=== PATIENT | male | born 1950 | race Caucasian/White ===

== ENCOUNTER → 2016-08-20 | Outpatient (CLI) | payer MEDICARE, OTHER | LOC: GMAM 10:50 | PROVIDERS: ATTEND Family Medicine | DX: M10.9 Gout, unspecified (principal) ==

== ENCOUNTER → 2016-11-25 | Outpatient (CLI) | payer MEDICARE, OTHER | END | disposition home or self-care (01) | LOC: GMAM 11:56 | PROVIDERS: ATTEND Family Medicine | DX: M10.9 Gout, unspecified (principal) ==

== ENCOUNTER → 2017-02-25 | Outpatient (CLI) | payer MEDICARE, OTHER | LOC: GMAM 10:37 | PROVIDERS: ATTEND Family Medicine | DX: M06.9 Rheumatoid arthritis, unspecified (principal); M10.9 Gout, unspecified; I10 Essential (primary) hypertension ==

== ENCOUNTER 2017-06-01 03:30 | Observation (INO) | payer MEDICARE, OTHER ==
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
[2017-06-01] MEDS ORDERED: ACETAMINOPHEN 325 MG TAB PO PRN (17:25)
[2017-06-01] MEDS ORDERED: NITROGLYCERIN 0.4 MG 25 EA TAB SL PRN (17:25)
[2017-06-01] MEDS ORDERED: MORPHINE SULFATE INJ 10 MG/ML VIAL IV PRN (17:25)
[2017-06-01] MEDS ORDERED: SODIUM CHLORIDE 0.9% (FLUSH) 10 ML SYG IV PRN (17:25)
[2017-06-01] MEDS ORDERED: IV SET AND CAP CHANGE INJ INJ SCH (17:30)
[2017-06-01] MEDS ORDERED: traMADol HCL 50 MG TAB PO PRN (17:31)
--- NOTE | 2017-06-01 17:39 | PCM.CORE ---
Physician DVT/VTE - 2 Moderate Risk Treatments: Sequential Compression Device Pharmacological: Enoxaparin 40mg SQ Daily
--- NOTE | 2017-06-01 18:24 | RAD ---
EXAM DESCRIPTION: Chest,1 View CLINICAL HISTORY: 66 years Male SOB COMPARISON: None. FINDINGS: The cardiomediastinal silhouette appears unremarkable. No consolidating infiltrates. No pneumothorax. Mild elevation of the left hemidiaphragm with left basilar atelectasis. Some blunting of the left costophrenic angle could reflect a small effusion. IMPRESSION: Elevation left hemidiaphragm with left basilar atelectasis. Some blunting of the left costophrenic angle could reflect a small amount of fluid. Electronically signed by: Shannon Petit 06/01/2017 6:23 PM CDT
[2017-06-01] MEDS ORDERED: ASPIRIN (CHEWABLE) 81 MG TAB ONE (18:33)
[2017-06-01] MEDS: PANTOPRAZOLE SODIUM TAB 40 MG PO SCH (18:38)
[2017-06-01] MEDS: ASPIRIN TABLET 325 MG TAB PO SCH (18:40)
[2017-06-01] MEDS ORDERED: DEXTROSE 50% 25 GM/50 ML SYG IV PRN (20:17)
[2017-06-01] MEDS ORDERED: GLUCAGON INJ 1 MG VIAL SUBCU PRN (20:17)
[2017-06-01] MEDS ORDERED: VERAPAMIL HCL 180 MG PO SCH (21:00)
[2017-06-01] MEDS ORDERED: METOPROLOL SUCCINATE XL 50 MG TAB PO SCH (21:00)
[2017-06-01] MEDS ORDERED: metFORMIN HCL 500 MG TAB PO SCH (21:00)
[2017-06-01] MEDS ORDERED: predniSONE 10 MG TAB PO SCH (21:00)
[2017-06-01] MEDS: ALBUTEROL SULFATE 2.5 MG/3 ML VIAL NEB SCH (21:35)
[2017-06-01] MEDS: NYSTATIN SUSPENSION 5 ML UD MT SCH (21:46)
[2017-06-01] MEDS: SUCRALFATE 1 GM/10 ML 1 GM UD PO SCH (21:46)
[2017-06-01] MEDS: SODIUM CHLORIDE 0.9% (FLUSH) 10 ML SYG IV SCH (21:46)
[2017-06-01] MEDS: INSULIN LISPRO 100 UNITS/ML PEN SUBCU SCH (21:46)
[2017-06-01] MEDS: HYDROcodone 7.5MG/APAP 325MG 1 EA TAB PO PRN (21:49)
[2017-06-02] MEDS: SUCRALFATE 1 GM/10 ML 1 GM UD PO SCH ×3 (06:47→14:41)
[2017-06-02] MEDS: PANTOPRAZOLE SODIUM TAB 40 MG PO SCH (06:47)
[2017-06-02] MEDS ORDERED: metFORMIN HCL 500 MG TAB PO SCH (07:00)
[2017-06-02] MEDS ORDERED: TRANDOLAPRIL 2 MG PO SCH (07:00)
--- NOTE | 2017-06-02 07:02 | RAD ---
EXAM DESCRIPTION: Chest,1 View CLINICAL HISTORY: 66 years Male, hiccups. Left diaphragm paralysis? COMPARISON: 06/01/2017 FINDINGS: Atherosclerotic calcification of the aortic arch. Heart is not enlarged. No pneumothorax. Blunting of the left costophrenic angle likely related to left basilar atelectasis however a small left pleural effusion is also a possibility. No displaced rib fractures. Upper abdominal soft tissues unremarkable. Leads overlie the chest. Elevation left hemidiaphragm. IMPRESSION: 1. Persistent left basilar opacity likely related to atelectasis. Possible small left pleural effusion. Electronically signed by: Farrukh Farrell 06/02/2017 7:01 AM CDT
[2017-06-02] MEDS: ALBUTEROL SULFATE 2.5 MG/3 ML VIAL NEB SCH ×2 (07:57→13:25)
[2017-06-02] MEDS ORDERED: predniSONE 10 MG TAB PO SCH ×2 (08:00→21:00)
[2017-06-02] MEDS: INSULIN LISPRO 100 UNITS/ML PEN SUBCU SCH ×2 (08:52→12:23)
[2017-06-02] MEDS ORDERED: VERAPAMIL ER 120 MG TAB PO SCH (09:00)
[2017-06-02] MEDS ORDERED: METOPROLOL SUCCINATE XL 50 MG TAB PO SCH (09:00)
[2017-06-02] MEDS ORDERED: INDOMETHACIN CAP 25 MG CAP PO SCH (09:00)
[2017-06-02] MEDS ORDERED: NON-FORMULARY MEDICATION 1 EA MIS (Sitagliptin-Metformin Hcl [Janumet 50-1000 Mg] 1 TAB) PO SCH (09:00)
[2017-06-02] MEDS: NYSTATIN SUSPENSION 5 ML UD MT SCH ×2 (10:15→12:23)
[2017-06-02] MEDS: ASPIRIN TABLET 325 MG TAB PO SCH (10:15)
[2017-06-02] MEDS: HYDROcodone 7.5MG/APAP 325MG 1 EA TAB PO PRN (10:15)
[2017-06-02] MEDS: SODIUM CHLORIDE 0.9% (FLUSH) 10 ML SYG IV SCH (10:15)
[2017-06-02 11:14] VITALS: TEMP 98.1
--- NOTE | 2017-06-02 12:54 | RAD ---
EXAM DESCRIPTION: Chest,1 View CLINICAL HISTORY: left diaphragm paralysis? COMPARISON: June 02, 2017 at 0650 hours. IMPRESSION: Single AP portable upright expiratory view of the chest shows mild enlargement of the cardiac silhouette without pulmonary vascular congestion. Mild calcifications of the thoracic aortic arch are seen. There remains a small left pleural effusion and probable left basilar atelectasis or infiltrate similar to previous exam. No elevation of the hemidiaphragm is seen on this view. The diaphragms appear relatively symmetric. Electronically signed by: Gilbert Torrez MD 06/02/2017 12:53 PM CDT
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
[2017-06-02 16:00] VITALS: BP 136/77; O2SAT 96
== END 2017-06-02 13:35 | disposition home or self-care (01) ==
LOC: MS 03:30 → UNDOADMOB 03:30 → MS 16:50 → UNDOADMOB 16:50 → MS 17:00 → UNDODISOB 06-02 13:35
PROVIDERS: ADMIT Emergency Medicine; ATTEND Emergency Medicine
DX: J38.5 Laryngeal spasm (principal); E11.9 Type 2 diabetes mellitus without complications; R91.8 Other nonspecific abnormal finding of lung field; J44.9 Chronic obstructive pulmonary disease, unspecified; M19.90 Unspecified osteoarthritis, unspecified site; E78.5 Hyperlipidemia, unspecified; M1A.9XX0 Chronic gout, unspecified, without tophus (tophi); I10 Essential (primary) hypertension; Z86.73 Personal history of transient ischemic attack (TIA), and cerebral infarction without residual deficits; Z87.891 Personal history of nicotine dependence
CPT/HCPCS: 36415 ×5; 36416 ×3; 71010 ×3; 80048 ×2; 80061; 82550 ×3; 82553 ×3; 82948 ×3; 83036; 83880; 84484 ×3; 85025 ×2; 86140; 94640 ×2; 94760; 96372 ×2; G0378; J1815; J7611 ×3

== ENCOUNTER → 2017-06-07 | Outpatient (CLI) | payer MEDICARE, OTHER | END | disposition home or self-care (01) | LOC: GMAM 10:23 | PROVIDERS: ATTEND Family Medicine | DX: M10.9 Gout, unspecified (principal) ==

== ENCOUNTER 2017-06-28 10:05 | Inpatient (IN) | payer MEDICARE, OTHER ==
[2017-06-28] MEDS ORDERED: IPRATROPIUM/ALBUTEROL 3 ML VIAL NEB ONE (10:14)
[2017-06-28] MEDS ORDERED: ACETAMINOPHEN 325 MG TAB PO ONE (10:14)
--- NOTE | 2017-06-28 11:37 | RAD ---
EXAM DESCRIPTION: Chest,2 Views CLINICAL HISTORY: 66 years Male, sob, fever COMPARISON: 02 June 2017 TECHNIQUE: PA/lateral FINDINGS: By basilar atelectasis or parenchymal scarring is observed. There is persistent elevation of the left hemidiaphragm. The heart is within range of normal. No pleural fluid is seen. IMPRESSION: 1. Chronic basilar atelectasis or parenchymal scarring is observed bilaterally. 2. Persistent elevation of the left hemidiaphragm is noted. Electronically signed by: Wiliam Orellana MD 06/28/2017 11:[address] [facility]
[2017-06-28] MEDS ORDERED: AZITHROMYCIN IV 500 MG in SODIUM CHLORIDE 0.9% 250ML 250 ML IVPB ONE (11:59)
[2017-06-28] MEDS ORDERED: CEFEPIME 2 GM in SODIUM CHL 0.9% 50ML MIN-BAG+ 50 ML IVPB ONE (11:59)
[2017-06-28] MEDS ORDERED: CEFEPIME 2 GM VIAL IVPB ONE ×2 (12:12→19:46)
[2017-06-28] MEDS ORDERED: SODIUM CHL 0.9% 50ML MIN-BAG+ 50 ML IVPB ONE ×2 (12:12→19:48)
[2017-06-28] MEDS ORDERED: predniSONE 20 MG TAB PO ONE (12:22)
--- NOTE | 2017-06-28 12:32 | ED.PDOC ---
History of Present Illness - General Chief Complaint: Respiratory Problem Stated Complaint: Increased work of breathing, bodyaches Time Seen by Provider: 06/28/17 10:13 Source: patient Exam Limitations: no limitations - History of Present Illness Initial Comments: the patient is 66-year-old male with a significant past medical history that presented to his primary care doctor today secondary to approximately 5 days of feeling ill. He has had a fever. He has had a significant cough and shortness of breath with any activity. He does have a history of COPD and no longer smokes. He was hospitalized not too long ago for different reasons. He does apparently have a history of some frequent respiratory tract infections. No syncope. Sputum has been productive. Rapid flu and rapid strep were negative at his primary care doctor's office today. Timing/Duration: unsure Severity: moderate Improving Factors: nothing Worsening Factors: nothing Associated Symptoms: cough, fever/chills, malaise, shortness of breath Allergies/Adverse Reactions: Allergies NO KNOWN ALLERGY Allergy (Verified 06/28/17 10:36) Home Medications: Ambulatory Orders Albuterol Sulfate [Proair Hfa] 2 puff INH Q6H PRN 04/29/15 Aspirin [Baby Aspirin] 81 mg PO QD 04/29/15 Febuxostat [Uloric] 80 mg PO DAILY 04/29/15 Metoprolol Succinate [Metoprolol Succinate ER] 50 mg PO DAILY 04/29/15 [place]-3 Fatty Acids [Fish Oil 1000 mg] 1 cap PO BID 04/29/15 Simvastatin 40 mg PO BEDTIME 04/29/15 Tramadol HCl 50 - 100 mg PO Q6-8H PRN 04/29/15 Trandolapril 2 mg PO DAILY 04/29/15 Verapamil HCl [Verapamil HCl Sr] 180 mg PO DAILY 04/29/15 predniSONE 5 mg PO DAILY 04/29/15 Budesonide-Formoterol Fumarate [Symbicort 160-4.5 Mcg/Act] 1 each IN BID HYDROcodone 10MG/APAP 325MG [[place] ] 1 - 2 ea PO Q4H PRN 06/01/17 Sitagliptin-Metformin HCl [Janumet 50-1000 mg] 1 tab PO BID 06/01/17 Sucralfate Tab [Carafate Tab] 1 gm PO TID #100 tab 06/02/17 Calcium Citrate-Vitamin D [Calcium Citrate + D3 Maxi 315-250 mg-Unit] 1 tab PO BID 06/28/17 Dulaglutide [Trulicity] 0.75 mg SC WKLY 06/28/17 Furosemide [Lasix] 20 mg PO DAILY PRN 06/28/17 Potassium Chloride [Micro-K] 8 meq PO DAILY PRN 06/28/17 Umeclidinium [place] [Incruse Ellipta] 62.5 mcg IN DAILY 06/28/17 Review of Systems - Review of Systems Constitutional: States: chills, fever, malaise, weakness EENTM: States: throat pain Respiratory: States: cough, short of breath Cardiology: States: no symptoms reported Gastrointestinal/Abdominal: States: abdominal pain - eft upper quadrant mild Genitourinary: States: no symptoms reported Musculoskeletal: States: no symptoms reported Skin: States: no symptoms reported Neurological: States: no symptoms reported All other Systems: No Change from Baseline Past Medical History (General) - Patient Medical History Hx Congestive Heart Failure: No Hx Hypertension: Yes Hx Diabetes: Yes Hx MRSA: No - Vaccination History Hx Influenza Vaccination: Yes - 2016 Hx Pneumococcal Vaccination: Yes - unknown date - Social History Hx Tobacco Use: Yes Hx Alcohol Use: No Hx Substance Use: No Hx Physical Abuse: No Hx Emotional Abuse: No Family Medical History - Family History Mother Name: Karlie Urban Living Status: Age at (years of age): 78 Cause of : Old Age Hx Family Asthma: No Hx Family Congestive Heart Failure: No Hx Family Hypertension: Yes Age of Onset (years of age): unk Hx Family Stroke: No Hx Cardiac Disease: No Hx Family Diabetes: No Hx Family Cancer: No Hx Family;Other: Mother had long Hx of ETOH abuse and nictione use for 50 years. Father Name: Aly Urban Living Status: Age at (years of age): 82 Cause of : Cancer of Liver with met. Hx Family Asthma: No Hx Family Congestive Heart Failure: No Hx Family Hypertension: No Hx Family Stroke: No Hx Cardiac Disease: No Hx Family Diabetes: No Hx Family Cancer: Yes Age of Onset (years of age): unk Hx Family;Other: Father has long Hx of ETOH and Nictione Use for 30 years. At age 50 -- quit smoking and drinking. Physical Exam - Physical Exam General Appearance: Alert, Ill Appearing Eye Exam: bilateral normal Ears, Nose, Throat: nasal congestion, other - earing is mildly decreased bilaterally Neck: full range of motion, supple Respiratory: respiratory distress - mild increased work of breathing, crackles - primarily to the left lower lobe Cardiovascular/Chest: normal peripheral pulses, no edema, tachycardia Peripheral Pulses: radial,right: 2+, radial,left: 2+, dorsalis pedis,right: 2+, dorsalis pedis,left: 2+ Gastrointestinal/Abdominal: soft, other - ild discomfort to the left upper quadrant. No definite rebound or peritoneal signs. Rectal Exam: deferred Back Exam: normal inspection, no CVA tenderness, no vertebral tenderness Extremity: non-tender, normal inspection, no pedal edema, normal capillary refill Neurologic: dyslexia teacher II-XII nml as tested, alert, normal mood/affect, oriented x 3 Skin Exam: pallor - mild Comments: Vital Signs - 24 hr 06/28/17 06/28/17 06/28/17 10:11 10:51 11:14 Temperature 99.7 F H Pulse Rate 107 H 113 H Pulse Rate [ 110 H Left Radial] Respiratory 24 20 20 Rate Blood Pressure 119/47 [Left Arm] O2 Sat by Pulse 84 L 95 96 Oximetry 06/28/17 11:17 Temperature Pulse Rate 113 H Pulse Rate [ 112 H Left Radial] Respiratory 20 Rate Blood Pressure 128/64 [Left Arm] O2 Sat by Pulse 94 L Oximetry Progress - Progress Progress: 06/28/17 12:34 the patient is a 66-year-old male presenting to the emergency room secondary to fever along with some shortness of breath and cough for the better part of the last week. The patient appears to be having a significant COPD exacerbation with significant hypoxia and fevers. Chest x-ray does not show any large pneumonia but the patient's lungs are obviously not clear. He does require supplemental oxygen. White blood cell count is not elevated however the patient is likely somewhat immunocompromised secondary to chronic steroid usage for autoimmune purposes. The patient is being started on cefepime and azithromycin. Blood cultures have been obtained. A sputum culture is pending. A urinalysis still needs to be performed. He received 20 mg of prednisone for the COPD component but also for the possibility of adrenal insufficiency with this patient with long-term steroid usage. The patient does have some mild left upper quadrant discomfort palpation. If that persists or worsens then additional imaging or testing may be warranted for that area. Anticipate a 3-5 day hospital stay given his current state and comorbidities. - Results/Orders Results/Orders: Laboratory Tests 06/28/17 06/28/17 10:24 10:24 WBC 7.6 RBC 3.85 L Hgb 12.0 L Hct 35.4 L MCV 91.9 MCH 31.1 H MCHC 34.0 RDW 14.5 Plt Count 246 MPV 7.5 Absolute Neuts (auto) 6.00 Absolute Lymphs (auto) 1.20 Absolute Monos (auto) 0.30 Absolute Eos (auto) 0.00 Absolute Basos (auto) 0.10 Neutrophils % 78.9 H Lymphocytes % 15.7 L Monocytes % 4.3 Eosinophils % 0.4 L Basophils % 0.7 Sodium 137 Potassium 4.0 Chloride 103 Carbon Dioxide 20 L Anion Gap 18.0 BUN 24 H Creatinine 1.37 H BUN/Creatinine Ratio 17.5 Random Glucose 168 H Serum Osmolality 281.7 Calcium 9.3 Total Bilirubin 0.6 AST 20 ALT 26 Alkaline Phosphatase 64 Creatine Kinase 26 L CK-MB (CK-2) 1.7 CK-MB (CK-2) % Not Reportable Troponin I < 0.02 B-Natriuretic Peptide 57.4 Serum Total Protein 7.8 Albumin 3.4 Globulin 4.4 H Albumin/Globulin Ratio 0.8 L chest x-ray shows persistent elevation of the left hemidiaphragm. No obvious large lobar pneumonia. No evidence of fluid overload. No pneumothorax. EKG shows sinus tachycardia at a rate of [address] bpm[address] Mild [address] segment depressions in lateral leads which is probably chronic. Normal R-wave progression. Very mild right axis deviation. No definitive ST segment changes concerning for ischemia. There is no chest pain. Departure - Departure Clinical Impression: COPD with acute exacerbation Disposition: Admit Patient Referrals: Ben Nguyễn MD [Primary Care Provider] - 1-2 Weeks Home Medications: Ambulatory Orders Albuterol Sulfate [Proair Hfa] 2 puff INH Q6H PRN 04/29/15 Aspirin [Baby Aspirin] 81 mg PO QD 04/29/15 Febuxostat [Uloric] 80 mg PO DAILY 04/29/15 Metoprolol Succinate [Metoprolol Succinate ER] 50 mg PO DAILY 04/29/15 [place]-3 Fatty Acids [Fish Oil 1000 mg] 1 cap PO BID 04/29/15 Simvastatin 40 mg PO BEDTIME 04/29/15 Tramadol HCl 50 - 100 mg PO Q6-8H PRN 04/29/15 Trandolapril 2 mg PO DAILY 04/29/15 Verapamil HCl [Verapamil HCl Sr] 180 mg PO DAILY 04/29/15 predniSONE 5 mg PO DAILY 04/29/15 Budesonide-Formoterol Fumarate [Symbicort 160-4.5 Mcg/Act] 1 each IN BID HYDROcodone 10MG/APAP 325MG [[place] 10] 1 - 2 ea PO Q4H PRN 06/01/17 Sitagliptin-Metformin HCl [Janumet 50-1000 mg] 1 tab PO BID 06/01/17 Sucralfate Tab [Carafate Tab] 1 gm PO TID #100 tab 06/02/17 Calcium Citrate-Vitamin D [Calcium Citrate + D3 Maxi 315-250 mg-Unit] 1 tab PO BID 06/28/17 Dulaglutide [Trulicity] 0.75 mg SC WKLY 06/28/17 Furosemide [Lasix] 20 mg PO DAILY PRN 06/28/17 Potassium Chloride [Micro-K] 8 meq PO DAILY PRN 06/28/17 Umeclidinium [place] [Incruse Ellipta] 62.5 mcg IN DAILY 06/28/17 Decision To Admit - Decistion To Admit Decision to Admit Reason: Medical Nature Decision to Admit Date: 06/28/17 Decision to Admit Time: 12:38
[2017-06-28] MEDS ORDERED: SODIUM CHLORIDE 0.9% 250ML 250 ML ONE (12:59)
[2017-06-28] MEDS ORDERED: AZITHROMYCIN IV 500 MG VIAL IVPB ONE (12:59)
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
[2017-06-28] MEDS ORDERED: SODIUM CHLORIDE 0.9% (FLUSH) 10 ML SYG IV PRN (14:17)
[2017-06-28] MEDS ORDERED: LEVALBUTEROL NEBS 1.25 MG/3 ML VIAL INH PRN (14:17)
[2017-06-28] MEDS ORDERED: IBUPROFEN 400 MG TAB PO PRN (14:17)
[2017-06-28] MEDS ORDERED: MAGNESIUM HYDROXIDE 30 ML UD PO PRN (14:17)
[2017-06-28] MEDS: IV SET AND CAP CHANGE INJ INJ SCH (15:15)
[2017-06-28] MEDS: POTASSIUM CHLORIDE 8 MEQ TAB PO SCH (16:19)
[2017-06-28] MEDS: SUCRALFATE 1 GM/10 ML 1 GM UD PO SCH ×2 (16:19→20:49)
[2017-06-28] MEDS: HYDROcodone 5MG/APAP 325MG 1 EA TAB PO PRN (16:19)
[2017-06-28] MEDS: ASPIRIN (CHEWABLE) 81 MG TAB PO SCH (16:19)
[2017-06-28] MEDS: SODIUM CHLORIDE 0.9% 1000ML 1,000 ML IVS PRN (16:20)
[2017-06-28] MEDS: IPRATROPIUM/ALBUTEROL 3 ML VIAL INH SCH ×2 (16:25→20:25)
--- NOTE | 2017-06-28 17:17 | CT ---
EXAM DESCRIPTION: Chest w/Contrast CT. CLINICAL HISTORY: left diaphragm paralysis. COMPARISON: Chest x-ray and fluoroscopy of the bilateral diaphragms on this visit. TECHNIQUE: Spiral-axial scans at 5.0 mm intervals through the lungs and thorax with IV contrast. 2.5 mm lung algorithm axial reconstructions. 2.0 Mm reconstructions. No adverse reactions. Total Exam DLP: 882.9 mGy-cm. This exam was performed according to our departmental dose-optimization program which includes automated exposure control, adjustment of the mA and/or kV according to patient size and/or use of iterative reconstruction technique; to reduce radiation dose to as low as reasonably achievable (ALARA). FINDINGS: Uniform contrast enhancement in the thyroid gland. No soft tissue mass in the base of the neck. Bilateral small axillary nodes. Mixed density mass containing fat and calcification with questionable enhancement between the right bronchus and esophagus just below the debi. 1.4 cm short axis transverse and 3 cm long axis craniocaudal. No hilar masses or abnormal enhancement bilaterally. Coronary artery calcifications. Vascular calcifications of the proximal brachiocephalic vessels and thoracic aorta with normal caliber of the aorta. No masses on the left side of the mediastinum. Elevation of the left hemidiaphragm and spleen and stomach and splenic flexure the colon. Scarring and/or atelectasis in the bilateral lower lobes. Also inferior lingula and right middle lobe. No definite consolidation and no abnormal nodules. No pleural effusion or pneumothorax. Minimal spondylosis in the thoracic spine. No destructive bone lesions. Normal size and enhancement of the bilateral adrenal glands and spleen. No subdiaphragmatic fluid or free air in the included peritoneal space. Small sliding hiatal hernia. IMPRESSION: 1. Elevation of the left hemidiaphragm which is interpreted to be due to paralysis based upon fluoroscopic guided sniff test. No masses or abnormal enhancement in the expected course of the left phrenic nerve on the left side of the mediastinum and hilum. 2. Possible reactive lymph node, short axis measurement 1.4 cm, subcarinal region between the esophagus and right bronchus. 3. Chronic changes in the lungs bilaterally. Electronically signed by: Kedar Grigsby MD 06/28/2017 5:16 PM [facility]
--- NOTE | 2017-06-28 17:41 | RAD ---
EXAM DESCRIPTION: Fluoroscopy Up to 1Hr CLINICAL HISTORY: 66 years Male, elevated left hemidiaphragm. COMPARISON: Chest radiographs on this visit, May 2017, and May 2014. CT scan of the chest with IV contrast on this visit. TECHNIQUE: Fluoroscopy performed by Dr. Grigsby of each hemidiaphragm during normal breathing, "sniff" test, and Valsalva maneuver. 6 cine loops were recorded. Total fluoroscopy time 0.9 minutes. Dose: 32.19 mGy. FINDINGS: On the regular inspiratory effort and Valsalva maneuver, normal excursion of the right hemidiaphragm. Limited downward movement of the left hemidiaphragm during these maneuvers. On the sniff test, left hemidiaphragm is abnormally superior. Right hemidiaphragm moves normally inferior. IMPRESSION: Maneuvers performed during fluoroscopy of the hemidiaphragms shows abnormal and paradoxical motion of the left hemidiaphragm which could indicate paralysis. Electronically signed by: Kedar Grigsby MD 06/28/2017 5:40 PM [facility]
[2017-06-28] MEDS ORDERED: SITagliptin 50 MG TAB PO ONE (19:50)
[2017-06-28] MEDS: BUDESONIDE/FORMOTEROL 160/4.5 60 PUFF/6 GM INH INH SCH (20:31)
[2017-06-28] MEDS: SITagliptin 50 MG TAB PO SCH (20:49)
[2017-06-28] MEDS: TEMAZEPAM 15 MG CAP PO PRN (20:49)
[2017-06-28] MEDS ORDERED: NON-FORMULARY MEDICATION 1 EA MIS (Sitagliptin-Metformin Hcl [Janumet 50-1000 Mg] 1 TAB) PO SCH (21:00)
--- NOTE | 2017-06-28 21:26 | PCM.CORE ---
Physician DVT/VTE - Nurse DVT Assessment & Total Each Risk Factor Represents 2 Points: Age 60-74 Each Risk Factor is 1 Point: Obesity (BMI >25), Serious Lung disease (pnemonia < 1month, COPD, emphysema,etc) DVT Assessment Score: 4 - 3-4 High Risk Treatments: Early Ambulation *, Sequential Compression Device Pharmacological: Enoxaparin 40 mg SQ Daily
[2017-06-28] MEDS: ENOXAPARIN SODIUM 40 MG/0.4 ML SYG SUBCU SCH (21:43)
[2017-06-28] MEDS: CEFEPIME 2 GM in SODIUM CHL 0.9% 50ML MIN-BAG+ 50 ML IVPB SCH (23:50)
[2017-06-29] MEDS: SODIUM CHLORIDE 0.9% 1000ML 1,000 ML IVS PRN (02:48)
[2017-06-29] MEDS ORDERED: OMEPRAZOLE CAP 20 MG CAP ONE (05:14)
[2017-06-29] MEDS: OMEPRAZOLE CAP 20 MG CAP PO SCH (06:18)
[2017-06-29] MEDS: SUCRALFATE 1 GM/10 ML 1 GM UD PO SCH ×4 (06:49→20:59)
[2017-06-29] MEDS ORDERED: METOPROLOL SUCCINATE XL 50 MG TAB ONE (07:22)
[2017-06-29] MEDS ORDERED: predniSONE 10 MG TAB ONE (07:22)
[2017-06-29] MEDS ORDERED: VERAPAMIL ER TAB 180 MG TAB PO ONE (07:22)
[2017-06-29] MEDS: predniSONE 10 MG TAB PO SCH (08:06)
[2017-06-29] MEDS: ASPIRIN (CHEWABLE) 81 MG TAB PO SCH (08:06)
[2017-06-29] MEDS: VERAPAMIL ER TAB 180 MG TAB PO SCH (08:06)
[2017-06-29] MEDS: METOPROLOL SUCCINATE XL 50 MG TAB PO SCH (08:06)
[2017-06-29] MEDS: SITagliptin 50 MG TAB PO SCH ×2 (08:06→20:59)
[2017-06-29] MEDS: POTASSIUM CHLORIDE 8 MEQ TAB PO SCH (08:07)
[2017-06-29] MEDS: IPRATROPIUM/ALBUTEROL 3 ML VIAL INH SCH ×4 (08:56→20:22)
[2017-06-29] MEDS: BUDESONIDE/FORMOTEROL 160/4.5 60 PUFF/6 GM INH INH SCH ×2 (08:58→20:21)
[2017-06-29] MEDS ORDERED: FEBUXOSTAT 80 MG PO SCH (09:00)
[2017-06-29] MEDS ORDERED: TRANDOLAPRIL 2 MG PO SCH (09:00)
[2017-06-29] MEDS ORDERED: GLUCAGON INJ 1 MG VIAL SUBCU PRN (09:19)
[2017-06-29] MEDS ORDERED: DEXTROSE 50% 25 GM/50 ML SYG IV PRN (09:19)
[2017-06-29] MEDS: NON-FORMULARY MEDICATION 1 EA MIS (Umeclidinium Bromide [Incruse Ellipta] 62.5 MCG) INH SCH (09:19)
[2017-06-29] MEDS ORDERED: CEFEPIME 2 GM VIAL IVPB ONE ×2 (09:55→23:28)
[2017-06-29] MEDS ORDERED: SODIUM CHL 0.9% 50ML MIN-BAG+ 50 ML IVPB ONE ×2 (09:55→23:28)
[2017-06-29] MEDS: INSULIN DETEMIR 100 UNITS/ML PEN SUBCU SCH (10:04)
[2017-06-29] MEDS: HYDROcodone 5MG/APAP 325MG 1 EA TAB PO PRN ×2 (10:07→18:07)
[2017-06-29] MEDS: INSULIN LISPRO 100 UNITS/ML PEN SUBCU SCH ×3 (11:48→21:04)
[2017-06-29] MEDS: CEFEPIME 2 GM in SODIUM CHL 0.9% 50ML MIN-BAG+ 50 ML IVPB SCH ×2 (11:50→23:31)
--- NOTE | 2017-06-29 11:50 | PN ---
DATE: 06/29/17 SUBJECTIVE: The patient is sitting up in the bed and in many ways looks a little less dyspneic today. He is still not as active as we would like and this will be increased today with observation to continue. No significant hiccups. Does have some dyspnea upon exertion and are awaiting ambulation studies to determine oxygen requirements. OBJECTIVE: VITAL SIGNS: Fever is down. See vitals. Elevated SPO2 is noted and will adjust oxygen down to maintain between 91% and 93% because of the chronic obstructive pulmonary disease risk of CO2 retention. LUNGS: Diminished breath sounds, primarily on the left secondary to the diaphragmatic excursion on that side being diminished. The patient did have a fluoroscopy exam yesterday afternoon which showed paralysis of the left hemidiaphragm. CT scan of the chest with contrast did not show specifically any type of lesion contributing to the left phrenic nerve involvement, nor the left recurrent laryngeal involvement with further ENT evaluation to continue. LABORATORY: Fairly significant anemia is noted on repeat lab today with stool guaiacs ordered and recheck in the morning with followup necessary. ASSESSMENT: 1. Acute febrile illness with probable evidence of underlying acute bronchitis with cultures pending, currently on cefepime and azithromycin fracture of the significance of his presentation. 2. Chronic obstructive pulmonary disease with an acute exacerbation requiring bronchodilators as well as corticosteroid short term administration and respiratory hygiene. 3. Hypoxia, showing some improvement with oxygen supplementation to continue, but not overly so to result in CO2 retention. 4. History of hypertension. 5. Diabetes mellitus, type 2. 6. Chronic arthritis. 7. History of recurring gouty arthritis episodes. 8. Elevated cholesterol levels. 9. History of transient ischemic attack in the past. 10. Recent history of anti-inflammatory shot in [place], resulting in hyperglycemia and symptoms hopefully showing some slight improvement. 11. 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 12. Mild hoarseness, possibly related to vocal cord involvement of left recurrent laryngeal with further ENT evaluation to continue. PLAN: We will increase activity level and observe closely. Continue antibiotic coverage because of the febrile presentation and because of some old inflammatory and infiltrative changes in the lungs bibasilarly. Dr. Nguyễn will assist after discharge with ENT evaluation followup to assist with ongoing evaluation to see if there is a specific pathology contributing to the left hemidiaphragm paralysis and the possibility of hoarseness. Reevaluate. #[id number] [facility]
[2017-06-29] MEDS: SODIUM CHLORIDE 0.9% (FLUSH) 10 ML SYG IV SCH ×2 (11:51→20:59)
[2017-06-29] MEDS: AZITHROMYCIN 250 MG TAB PO SCH (12:53)
[2017-06-29] MEDS: NON-FORMULARY MEDICATION 1 EA MIS (Febuxostat [Uloric] 40 MG) PO SCH (17:23)
[2017-06-29] MEDS: TEMAZEPAM 15 MG CAP PO PRN (20:59)
[2017-06-29] MEDS: ENOXAPARIN SODIUM 40 MG/0.4 ML SYG SUBCU SCH (20:59)
[2017-06-29] MEDS: TRANDOLAPRIL 2 MG PO SCH (21:01)
[2017-06-30] MEDS: OMEPRAZOLE CAP 20 MG CAP PO SCH (06:22)
[2017-06-30] MEDS: SUCRALFATE 1 GM/10 ML 1 GM UD PO SCH ×4 (06:23→21:16)
[2017-06-30] MEDS: INSULIN LISPRO 100 UNITS/ML PEN SUBCU SCH ×4 (07:31→21:23)
[2017-06-30] MEDS: POTASSIUM CHLORIDE 8 MEQ TAB PO SCH (08:28)
[2017-06-30] MEDS: NON-FORMULARY MEDICATION 1 EA MIS (Umeclidinium Bromide [Incruse Ellipta] 62.5 MCG) INH SCH (08:40)
[2017-06-30] MEDS: IPRATROPIUM/ALBUTEROL 3 ML VIAL INH SCH ×4 (08:40→20:39)
[2017-06-30] MEDS: BUDESONIDE/FORMOTEROL 160/4.5 60 PUFF/6 GM INH INH SCH ×2 (08:40→20:39)
[2017-06-30] MEDS: VERAPAMIL ER TAB 180 MG TAB PO SCH (09:22)
[2017-06-30] MEDS: SITagliptin 50 MG TAB PO SCH ×2 (09:22→21:16)
[2017-06-30] MEDS: ASPIRIN (CHEWABLE) 81 MG TAB PO SCH (09:23)
[2017-06-30] MEDS: predniSONE 10 MG TAB PO SCH (09:23)
[2017-06-30] MEDS: TRANDOLAPRIL 2 MG PO SCH (09:23)
[2017-06-30] MEDS: INSULIN DETEMIR 100 UNITS/ML PEN SUBCU SCH (09:24)
[2017-06-30] MEDS: METOPROLOL SUCCINATE XL 50 MG TAB PO SCH (09:25)
[2017-06-30] MEDS: SODIUM CHLORIDE 0.9% (FLUSH) 10 ML SYG IV SCH ×2 (09:25→21:24)
[2017-06-30] MEDS: HYDROcodone 5MG/APAP 325MG 1 EA TAB PO PRN ×3 (09:27→22:00)
[2017-06-30] MEDS ORDERED: CEFEPIME 2 GM VIAL IVPB ONE (10:59)
[2017-06-30] MEDS ORDERED: SODIUM CHL 0.9% 50ML MIN-BAG+ 50 ML IVPB ONE (10:59)
[2017-06-30] MEDS: CEFEPIME 2 GM in SODIUM CHL 0.9% 50ML MIN-BAG+ 50 ML IVPB SCH ×2 (11:01→11:20)
[2017-06-30] MEDS ORDERED: CEFUROXIME AXETIL TAB 250 MG TAB PO SCH (12:00)
[2017-06-30] MEDS: AZITHROMYCIN 250 MG TAB PO SCH (12:08)
[2017-06-30] MEDS ORDERED: metFORMIN HCL 500 MG TAB ONE (15:05)
[2017-06-30] MEDS ORDERED: predniSONE 10 MG TAB PO SCH (15:40)
[2017-06-30] MEDS: NON-FORMULARY MEDICATION 1 EA MIS (Febuxostat [Uloric] 40 MG) PO SCH (18:02)
[2017-06-30] MEDS: metFORMIN HCL 500 MG TAB PO SCH (18:03)
--- NOTE | 2017-06-30 18:23 | PN ---
DATE: 06/30/17 SUBJECTIVE: Earlier this morning when he awoke he was not feeling well, but felt dramatically better after receiving some of the insulin sliding scale and Levemir this morning. He is to start his oral preparations later this afternoon at which time we will have to observe to see its effect upon the blood sugars without over treatment being anticipated. His voice seems to be a little better but he is still complaining of a little hoarseness. OBJECTIVE: The fact that he has been on 10 mg of prednisone instead of his usual 5 may have contributed to some of his hyperglycemia. He is beginning to walk and it is helping him to feel a little stronger, and is encouraged to increase his activity level. LUNGS: Still with some diminished breath sounds left base. HEART: Tones regular. ABDOMEN: Generally soft. ASSESSMENT: 1. Acute febrile illness with probable evidence of underlying acute bronchitis with cultures pending, currently on cefepime and azithromycin fracture of the significance of his presentation. 2. Chronic obstructive pulmonary disease with an acute exacerbation requiring bronchodilators as well as corticosteroid short term administration and respiratory hygiene. 3. Hypoxia, showing some improvement with oxygen supplementation to continue, but not overly so to result in CO2 retention. 4. History of hypertension. 5. Diabetes mellitus, type 2. 6. Chronic arthritis. 7. History of recurring gouty arthritis episodes. 8. Elevated cholesterol levels. 9. History of transient ischemic attack in the past. 10. Recent history of anti-inflammatory shot in [place], resulting in hyperglycemia and symptoms hopefully showing some slight improvement. 11. 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 12. Mild hoarseness, possibly related to vocal cord involvement of left recurrent laryngeal with further ENT evaluation to continue. PLAN: Of note is the fact that the patient does have an appointment with the Ear, Nose and Throat specialist in the near future. He will have close followup with Dr. Nguyễn. Will request the opinion of the ENT specialist as to possible etiologies for the significant left hemidiaphragm paralysis and the persistent hoarseness starting a few weeks ago. He is to increase his activity level. Will decrease prednisone to 5 mg a day and observe the response of the glucose and diabetes control as the addition of the oral medicines are restarted now a couple of days after the contrast study was given to the patient for his CT of the chest. Anticipate home possibly in the morning if stable on Ceftin and to complete his short course of Azithromycin. Close followup is necessary. [facility][id number] [facility]
[2017-06-30] MEDS ORDERED: CEFUROXIME AXETIL TAB 250 MG TAB ONE (19:29)
[2017-06-30] MEDS ORDERED: METOPROLOL SUCCINATE XL 50 MG TAB ONE (19:30)
[2017-06-30] MEDS ORDERED: METOPROLOL SUCCINATE XL 50 MG TAB PO SCH (21:00)
[2017-06-30] MEDS: ENOXAPARIN SODIUM 40 MG/0.4 ML SYG SUBCU SCH (21:17)
[2017-06-30] MEDS: CEFUROXIME AXETIL TAB 250 MG TAB PO SCH (21:58)
[2017-07-01] MEDS: OMEPRAZOLE CAP 20 MG CAP PO SCH (06:15)
[2017-07-01] MEDS: SUCRALFATE 1 GM/10 ML 1 GM UD PO SCH ×2 (06:38→10:42)
[2017-07-01] MEDS: INSULIN LISPRO 100 UNITS/ML PEN SUBCU SCH ×2 (08:05→12:12)
[2017-07-01] MEDS: POTASSIUM CHLORIDE 8 MEQ TAB PO SCH (08:13)
[2017-07-01] MEDS: metFORMIN HCL 500 MG TAB PO SCH (08:14)
[2017-07-01] MEDS: ASPIRIN (CHEWABLE) 81 MG TAB PO SCH (08:15)
[2017-07-01] MEDS: VERAPAMIL ER TAB 180 MG TAB PO SCH (08:16)
[2017-07-01] MEDS: TRANDOLAPRIL 2 MG PO SCH (08:16)
[2017-07-01] MEDS: SODIUM CHLORIDE 0.9% (FLUSH) 10 ML SYG IV SCH (08:16)
[2017-07-01] MEDS: SITagliptin 50 MG TAB PO SCH (08:16)
[2017-07-01] MEDS: INSULIN DETEMIR 100 UNITS/ML PEN SUBCU SCH (08:18)
[2017-07-01] MEDS: IPRATROPIUM/ALBUTEROL 3 ML VIAL INH SCH ×2 (08:45→12:48)
[2017-07-01] MEDS: NON-FORMULARY MEDICATION 1 EA MIS (Umeclidinium Bromide [Incruse Ellipta] 62.5 MCG) INH SCH (08:45)
[2017-07-01] MEDS: BUDESONIDE/FORMOTEROL 160/4.5 60 PUFF/6 GM INH INH SCH (08:45)
[2017-07-01] MEDS ORDERED: TRANDOLAPRIL 2 MG PO SCH (09:00)
[2017-07-01] MEDS: HYDROcodone 5MG/APAP 325MG 1 EA TAB PO PRN (10:40)
[2017-07-01] MEDS: CEFUROXIME AXETIL TAB 250 MG TAB PO SCH (10:42)
[2017-07-01 10:51] VITALS: BP 130/69; TEMP 96.6; O2SAT 99
[2017-07-01] MEDS: AZITHROMYCIN 250 MG TAB PO SCH (12:14)
[2017-07-01] MEDS: IV SET AND CAP CHANGE INJ INJ SCH (14:35)
--- NOTE | 2017-07-11 08:42 | DS ---
SUPERVISING PHYSICIAN: Joao Wyatt MD DISCHARGE DIAGNOSIS: 1. Acute febrile illness with probable evidence of underlying acute bronchitis with the patient having been on cefepime and azithromycin, showing good clinical response. 2. Chronic obstructive pulmonary disease with an acute exacerbation , requiring bronchodilators as well as corticosteroid administration and respiratory hygiene. 3. Hypoxia, showing improvement with oxygen supplementation. 4. History of hypertension. 5. Diabetes mellitus, type 2. 6. Chronic arthritis. 7. History of recurring gouty arthritis episodes. 8. Elevated cholesterol levels. 9. History of transient ischemic attack in the past. 10. Recent history of anti-inflammatory shot in [place], resulting in hyperglycemia and symptoms related to the so-called "Prashanth Shot." 11. 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 12. Mild hoarseness, possibly related to vocal cord involvement of left recurrent laryngeal with needed further ENT evaluation. HISTORY OF PRESENT ILLNESS: Mr. Urban is a 66-year-old male patient who was admitted to the hospital from the Emergency Room after being referred from Dr. Nguyễn's office for further investigation and supportive care. He had been getting worse with cough and high fever of 101.4 or higher for the last 4 or 5 days prior to admission. He had some yellowish sputum and mild exertion resulting in significant shortness of breath. Slight sore throat is also noted. The has also noted some hoarseness which had gotten progressively worse for the last 6 weeks. It got better for a while and then it is worse over the previous 4 or 5 days. He has had hospitalization because of severe hiccups and some laryngeal spasm back in May of approximately a month ago. He seemed to be getting better with the Carafate liquid or tablets to help with some of the inflammation of the gastrointestinal tract. He had smoked in the past, but now stopped. His current symptoms are a little worse than they have been in the past with significant cough as well as fever and worsening shortness of breath. He was admitted to the hospital after blood cultures obtained. He is started on cefepime and azithromycin to extend the coverage of the antibiotics as further investigation continued, especially regarding the paralyzed left hemidiaphragm. He has had a history of gout attacks in the past and about a month ago he did have a significant injection referred to as the "Prashanth shot" in [facility] for this arthritic discomfort and has been feeling steadily not normal since then. LABORATORY: White count on admission was 7.6, at discharge 5,100. Hemoglobin 9.5, hematocrit 28.5 at discharge, platelet count 188,000. Differential did show a left shift initially, but then showed improvement prior to discharge. Chemistries on admission showed normal electrolytes with BUN 24, creatinine 1.37 , glucose 168. Liver functions all within normal limits as well as troponin and CPK, BNP. He was started on corticosteroids and did show an elevation of his blood sugar, but was showing good control and on discharge was 260. At discharge, chemistries showed normal electrolytes prior to being released as well as liver functions all within normal limits. Urinalysis on admission showed 500 glucose, otherwise within normal limits. MICROBIOLOGY: Blood cultures remained negative after 5 days. Sputum culture showed heavy growth of yeast. RADIOLOGY: He had multiple radiographic studies completed. Initially in the Emergency Department, chest x-ray per radiologic interpretation showed two-view chest with chronic basilar atelectasis and parenchymal scarring with persistent elevation of left hemidiaphragm. This was followed up with CT of the chest with contrast and fluoroscopy and per radiologic interpretation there was noted elevation of the left hemidiaphragm which is interpreted to be due to paralysis based upon the fluoroscopic guided sniff test. No masses or abnormal enhancement in the expected course of the left phrenic nerve or left side of the mediastinum or hilum. Possible reactive lymph nodes. Short axis measurement 1.4 cm, subcarinal region between the esophagus and right bronchus as well as chronic changes in the lungs bilaterally. Please see that final report for full details. He had a fluoroscopic exam, sniff test, and per radiologic interpretation showed abnormal and paradoxical motion of the left hemidiaphragm which could indicate paralysis. He had an echocardiogram that was from the clinic performed in 05/31 with left ventricle showing normal size with moderate concentric left ventricular hypertrophy with estimated ejection fraction of 65% with a grade 1 diastolic dysfunction. HOSPITAL COURSE: Mr. Urban was admitted as noted in history of present illness on 06/28/17 and initiated on antibiotic therapy with cefepime and azithromycin. He did show good clinical response as well as he was started on corticosteroids with prednisone and had aggressive pulmonary hygiene. It was felt on date of discharge that he had clinically stabilized and was able to followup in the outpatient setting. PLAN: Mr. Urban was discharged on 07/01/17 with instructions to have close clinical followup with Dr. Nguyễn in 1 to 2 weeks and suggested followup with Dr. Simms, ENT, as scheduled for further evaluation of findings on CT and concerns for phrenic nerve paralysis secondary to possible neoplasm along with laryngeal hoarseness. He was discharged with antibiotics to include azithromycin 500 mg for completion of 5 day course and continued antibiotic therapy with cefepime 500 mg twice daily for an additional 5 days. All other medications prior to hospital were continued without modification. DIET AT DISCHARGE: Diabetic diet as tolerated. ACTIVITY: Increase as tolerated. CONDITION AT DISCHARGE: Stable and improved. #[id number] [facility]
== END 2017-07-01 15:26 | disposition home or self-care (01) | DRG 191 ==
LOC: ER 10:05 → OBSVTOIN 13:04 → MS 13:04
PROVIDERS: ADMIT Emergency Medicine; ATTEND Nurse Practitioner Family
PROC: BB24YZZ Computerized Tomography (CT Scan) of Bilateral Lungs using Other Contrast (ICD-10-PCS; principal; 2017-06-28)
DX: J44.1 Chronic obstructive pulmonary disease with (acute) exacerbation (principal); E27.40 Unspecified adrenocortical insufficiency; R09.02 Hypoxemia; R49.0 Dysphonia; J98.6 Disorders of diaphragm; I10 Essential (primary) hypertension; E11.9 Type 2 diabetes mellitus without complications; M19.90 Unspecified osteoarthritis, unspecified site; M10.9 Gout, unspecified; E78.00 Pure hypercholesterolemia, unspecified; Z66 Do not resuscitate; Z86.73 Personal history of transient ischemic attack (TIA), and cerebral infarction without residual deficits; Z87.891 Personal history of nicotine dependence; Z79.82 Long term (current) use of aspirin; Z79.52 Long term (current) use of systemic steroids; Z79.899 Other long term (current) drug therapy

== ENCOUNTER → 2017-08-02 | Outpatient (CLI) | payer MEDICARE, OTHER | END | disposition home or self-care (01) | LOC: GMAM 11:20 | PROVIDERS: ATTEND Family Medicine | DX: E53.8 Deficiency of other specified B group vitamins (principal); D64.9 Anemia, unspecified ==

== ENCOUNTER → 2017-08-16 | Outpatient (CLI) | payer MEDICARE, OTHER | END | disposition home or self-care (01) | LOC: GMAM 14:55 | PROVIDERS: ATTEND Family Medicine | DX: R05 Cough (principal) ==

== ENCOUNTER → 2017-08-18 | Outpatient (CLI) | payer MEDICARE, OTHER | END | disposition home or self-care (01) | LOC: LAB.O 15:21 | PROVIDERS: ATTEND Psychiatry & Neurology Neurology | DX: M33.22 Polymyositis with myopathy (principal); G61.81 Chronic inflammatory demyelinating polyneuritis; M54.12 Radiculopathy, cervical region; M54.16 Radiculopathy, lumbar region; I73.00 Raynaud's syndrome without gangrene; G25.89 Other specified extrapyramidal and movement disorders; M35.00 Sjogren syndrome, unspecified; M32.10 Systemic lupus erythematosus, organ or system involvement unspecified; M31.6 Other giant cell arteritis; I77.9 Disorder of arteries and arterioles, unspecified; E11.9 Type 2 diabetes mellitus without complications; M45.0 Ankylosing spondylitis of multiple sites in spine; B18.2 Chronic viral hepatitis C; E55.9 Vitamin D deficiency, unspecified ==

== ENCOUNTER → 2017-09-08 | Outpatient (CLI) | payer MEDICARE, OTHER ==
--- NOTE | 2017-09-10 20:44 | CT ---
EXAM DESCRIPTION: Chest w/o Contrast : Computed Tomography. CLINICAL HISTORY: DISORDERS OF DIAPHRAGM. Left hemidiaphragm paralysis. COMPARISON: Chest CT scan with IV contrast following this exam. Chest CT scan with IV contrast 06/28/2017. TECHNIQUE: Spiral-axial scans at 5.0 mm intervals through the lungs and thorax without IV contrast. 2.5 mm lung algorithm axial reconstructions. Coronal and sagittal 2.0 Mm reconstructions. Total Exam DLP: 699.87 mGy-cm. This exam was performed according to our departmental dose-optimization program which includes automated exposure control, adjustment of the mA and/or kV according to patient size and/or use of iterative reconstruction technique; to reduce radiation dose to as low as reasonably achievable (ALARA). FINDINGS: Elevated left hemidiaphragm containing the spleen with the hilum oriented anteriorly. Scarring in the posterior recess of the left lower lobe stable since the prior study. Bilateral pleural thickening more on the left stable since the prior study. Intersegmental thickening in the right lower lobe has increased in the posterior recess since the prior study. This is associated with right pleural thickening. No new nodules bilaterally no pleural effusion or pneumothorax. No abnormal calcified lesions in the lung parenchyma. Uniform enhancement of the thyroid gland. Small nodes abutting the thyroid gland in the mediastinum but no enlargement. The true vocal cords appear to be abutting each other bilaterally. No mass in the region of the phrenic nerve bilaterally. Coronary artery calcifications. No hilar masses. No axillary adenopathy. No other hilar or mediastinal calcifications. Atherosclerotic changes in the thoracic and abdominal aorta. Normal size and enhancement of the spleen and adrenal glands. Gallbladder is visualized with possible wall thickening. Vascular calcifications in the branches of the aorta. No subdiaphragmatic fluid in the included peritoneal space. Minimal spondylosis in the included thoracic spine. No bone destruction. IMPRESSION: 1. Again noted is elevation of the left hemidiaphragm with the spleen rotated just under the diaphragm in the peritoneum. No significant change from the prior study. Stable scarring and pleural thickening and volume loss on the left. Increasing septal and segmental wall thickening, associated with the posterior pleura, in the posterior recess of the right lower lobe. 2. True vocal cords appear to be abutting each other. This can be significant in light of the left hemidiaphragm paralysis. Correlate with clinical speech function. No masses seen on the left side of the mediastinum or in the pathway of the left phrenic nerve. 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
--- NOTE | 2017-09-10 20:44 | CT ---
EXAM DESCRIPTION: Chest w/Contrast : Computed Tomography. CLINICAL HISTORY: DISORDERS OF DIAPHRAGM. Paralysis left hemidiaphragm. COMPARISON: CT scan of the chest with IV contrast 06/28/2017. CT scan of the chest without IV contrast on this visit. TECHNIQUE: Spiral-axial scans at 5.0 mm intervals through the lungs and thorax with IV contrast. 2.5 mm lung algorithm axial reconstructions. Coronal and sagittal 2.0 Mm reconstructions. No adverse reactions. Total Exam DLP: 697.21 mGy-cm. This exam was performed according to our departmental dose-optimization program which includes automated exposure control, adjustment of the mA and/or kV according to patient size and/or use of iterative reconstruction technique; to reduce radiation dose to as low as reasonably achievable (ALARA). FINDINGS: Elevated left hemidiaphragm containing the spleen with the hilum oriented anteriorly. Scarring in the posterior recess of the left lower lobe stable since the prior study. Bilateral pleural thickening more on the left stable since the prior study. Intersegmental thickening in the right lower lobe has increased in the posterior recess since the prior study. This is associated with right pleural thickening. No new nodules bilaterally no pleural effusion or pneumothorax. Uniform enhancement of the thyroid gland. Small nodes abutting the thyroid gland in the mediastinum but no enlargement. The true vocal cords appear to be abutting each other bilaterally. No mass in the region of the phrenic nerve bilaterally. Coronary artery calcifications. No hilar masses. No axillary adenopathy. Atherosclerotic changes in the thoracic and abdominal aorta. Normal size and enhancement of the spleen and adrenal glands. Gallbladder is visualized with possible wall thickening. Vascular calcifications in the branches of the aorta. No subdiaphragmatic fluid in the included peritoneal space. Minimal spondylosis in the included thoracic spine. No bone destruction. IMPRESSION: 1. Again noted is elevation of the left hemidiaphragm with the spleen rotated just under the diaphragm in the peritoneum. No significant change since the prior study. Stable scarring and pleural thickening and volume loss on the left. Increasing septal and segmental wall thickening, associated with the posterior pleura, in the posterior recess of the right lower lobe. 2. True vocal cords appear to be abutting each other. This can be significant in light of the left hemidiaphragm paralysis. Correlate with clinical speech function. No masses seen on the left side of the mediastinum or in the pathway of the left phrenic nerve. 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
== END ==
LOC: CT 08:53
PROVIDERS: ATTEND Psychiatry & Neurology Neurology
DX: J98.6 Disorders of diaphragm (principal); D51.9 Vitamin B12 deficiency anemia, unspecified; M06.9 Rheumatoid arthritis, unspecified; M10.9 Gout, unspecified; Z12.5 Encounter for screening for malignant neoplasm of prostate; Z01.812 Encounter for preprocedural laboratory examination
CPT/HCPCS: 71250; 71260; 82607; 85651; G0103

== ENCOUNTER → 2017-11-14 | Outpatient (CLI) | payer MEDICARE, OTHER ==
[2017-11-21 15:34] VITALS: BP 132/70; O2SAT 95
== END ==
LOC: PR 08-04 13:18
PROVIDERS: ATTEND Family Medicine
DX: J44.9 Chronic obstructive pulmonary disease, unspecified (principal)

== ENCOUNTER → 2017-12-20 | Outpatient (CLI) | payer MEDICARE, OTHER | LOC: GMAM 11:00 | PROVIDERS: ATTEND Family Medicine | DX: E53.8 Deficiency of other specified B group vitamins (principal); M10.9 Gout, unspecified ==

== ENCOUNTER → 2018-02-28 | Outpatient (CLI) | payer MEDICARE, OTHER | LOC: GMAM 11:02 | PROVIDERS: ATTEND Family Medicine | DX: M06.9 Rheumatoid arthritis, unspecified (principal) ==

== ENCOUNTER → 2018-06-08 | Outpatient (CLI) | payer MEDICARE, OTHER | LOC: GMAM 12:58 | PROVIDERS: ATTEND Family Medicine | DX: E53.8 Deficiency of other specified B group vitamins (principal); M10.9 Gout, unspecified ==

== ENCOUNTER → 2018-10-04 | Outpatient (CLI) | payer MEDICARE, OTHER | LOC: GMAM 11:00 | PROVIDERS: ATTEND Family Medicine | DX: M10.9 Gout, unspecified (principal); E53.8 Deficiency of other specified B group vitamins; Z12.5 Encounter for screening for malignant neoplasm of prostate | CPT/HCPCS: 82607; 84550; G0103 ==

== ENCOUNTER 2018-12-11 11:01 | Inpatient (IN) | payer MEDICARE, OTHER ==
[2018-12-11] MEDS ORDERED: IPRATROPIUM/ALBUTEROL 3 ML VIAL NEB ONE ×2 (11:12→11:14)
--- NOTE | 2018-12-11 11:28 | RAD ---
EXAM DESCRIPTION: Chest,1 View CLINICAL HISTORY: 67 years Male, sob, hypoxia, copd COMPARISON: Previous study June 29, 2017 TECHNIQUE: AP portable chest. FINDINGS: Heart size is prominent with normal pulmonary vascularity. Elevated left hemidiaphragm. No consolidating infiltrate. No pulmonary mass or worrisome nodule. No pneumothorax or pleural effusion. Bones are unremarkable. IMPRESSION: No acute process is identified in the chest. Electronically signed by: Ramon Diego MD 12/11/2018 11:26 AM CDT
[2018-12-11] MEDS ORDERED: methylPREDNISolone SODIUM SUC 125 MG/2 ML VIAL IV ONE (11:31)
[2018-12-11] MEDS ORDERED: MONTELUKAST 10 MG TAB PO ONE (11:32)
[2018-12-11] MEDS ORDERED: OSELTAMIVIR 75 MG CAP PO ONE (11:57)
[2018-12-11] MEDS ORDERED: PIPERACILLIN/TAZOBACTAM 3.375 GM in SODIUM CHLORIDE 0.9% 100ML 100 ML IVPB ONE (12:22)
[2018-12-11] MEDS ORDERED: SODIUM CHLORIDE 0.9% 100ML 100 ML IVPB ONE (12:35)
[2018-12-11] MEDS ORDERED: PIPERACILLIN/TAZOBACTAM 3.375 GM VIAL IVPB ONE (12:35)
--- NOTE | 2018-12-11 12:35 | ED.PDOC ---
History of Present Illness - General Chief Complaint: Respiratory Problem Stated Complaint: shortness of breath Time Seen by Provider: 12/11/18 11:05 Source: patient Exam Limitations: no limitations - History of Present Illness Initial Comments: the patient is a 67-year-old male presenting to the emergency room secondary to hypoxia. He was sent over from clinic due to having oxygen saturations ranging from 75-80% on room air. He does not normally wear oxygen. He does have a significant history of COPD and has been in a COPD exacerbation for the last week. He has been taking azithromycin. Cough is minimally productive. He is mostly having shortness of breath and fevers. No syncope or near-syncope. No real chest pain. He does feel weak and tired. Timing/Duration: 1 week Severity: moderate Improving Factors: nothing Worsening Factors: nothing Associated Symptoms: cough, fever/chills, malaise, shortness of breath Allergies/Adverse Reactions: Allergies NO KNOWN ALLERGY Allergy (Verified 06/28/17 10:36) Home Medications: Ambulatory Orders Albuterol Sulfate [Proair Hfa] 2 puff INH Q6H PRN 04/29/15 Aspirin [Baby Aspirin] 81 mg PO QD 04/29/15 Febuxostat [Uloric] 40 mg PO 1700 04/29/15 Metoprolol Succinate [Metoprolol Succinate ER] 50 mg PO DAILY 04/29/15 [place]-3 Fatty Acids [Fish Oil 1000 mg] 1 cap PO BID 04/29/15 Simvastatin 40 mg PO BEDTIME 04/29/15 Tramadol HCl 50 - 100 mg PO Q6-8H PRN 04/29/15 Trandolapril 2 mg PO DAILY 04/29/15 Verapamil HCl [Verapamil HCl Sr] 180 mg PO DAILY 04/29/15 predniSONE 5 mg PO DAILY 04/29/15 Budesonide-Formoterol Fumarate [Symbicort 160-4.5 Mcg/Act] 1 each IN BID 06/01/17 HYDROcodone 10MG/APAP 325MG [[place] 103[address]] 1 - 2 ea PO Q4H PRN 06/01/17 Sitagliptin-Metformin HCl [Janumet 50-1000 mg] 1 tab PO BID 06/01/17 Sucralfate Tab [Carafate Tab] 1 gm PO TID #100 tab 06/02/17 Calcium Citrate-Vitamin D [Calcium Citrate + D3 Maxi 315-250 mg-Unit] 1 tab PO BID 06/28/17 Dulaglutide [Trulicity] 0.75 mg SC WKLY 06/28/17 Furosemide [Lasix] 20 mg PO DAILY PRN 06/28/17 Potassium Chloride [Micro-K] 8 meq PO DAILY PRN 06/28/17 Umeclidinium [place] [Incruse Ellipta] 62.5 mcg IN DAILY 06/28/17 Azithromycin 500 mg PO DAILY #2 tab 07/01/17 Cefuroxime Axetil [Ceftin] 500 mg PO BID #10 tab 07/01/17 Review of Systems - Review of Systems Constitutional: States: fever, malaise, weakness EENTM: States: nose congestion Respiratory: States: cough, short of breath Cardiology: States: no symptoms reported Gastrointestinal/Abdominal: States: no symptoms reported Genitourinary: States: no symptoms reported Musculoskeletal: States: no symptoms reported Skin: States: no symptoms reported Neurological: States: no symptoms reported Endocrine: States: no symptoms reported Hematologic/Lymphatic: States: no symptoms reported All other Systems: No Change from Baseline Past Medical History (General) - Patient Medical History Hx Seizures: No Hx Stroke: Yes - TIA's x7 Hx Asthma: No Hx of COPD: Yes - acute exaceberation Hx Congestive Heart Failure: No Hx Pacemaker: No Hx Hypertension: Yes Hx Diabetes: Yes - DM 2, insulin & PO controlled Hx MRSA: No - Vaccination History Hx Influenza Vaccination: Yes - 2016 Hx Pneumococcal Vaccination: Yes - unknown date - Social History Hx Tobacco Use: Yes Hx Alcohol Use: No Hx Substance Use: No Hx Physical Abuse: No Hx Emotional Abuse: No Family Medical History - Family History Mother Name: Karlie Urban Living Status: Age at (years of age): 78 Cause of : Old Age Hx Family Asthma: No Hx Family Congestive Heart Failure: No Hx Family Hypertension: Yes Age of Onset (years of age): unk Hx Family Stroke: No Hx Cardiac Disease: No Hx Family Diabetes: No Hx Family Cancer: No Hx Family;Other: Mother had long Hx of ETOH abuse and nictione use for 50 years. Father Name: Aly Urban Living Status: Age at (years of age): 82 Cause of : Cancer of Liver with met. Hx Family Asthma: No Hx Family Congestive Heart Failure: No Hx Family Hypertension: No Hx Family Stroke: No Hx Cardiac Disease: No Hx Family Diabetes: No Hx Family Cancer: Yes Age of Onset (years of age): unk Hx Family;Other: Father has long Hx of ETOH and Nictione Use for 30 years. At age 50 -- quit smoking and drinking. Physical Exam - Physical Exam General Appearance: Alert, Frail, Ill Appearing Eye Exam: bilateral normal Ears, Nose, Throat: hearing grossly normal, nasal congestion Neck: full range of motion, supple Respiratory: decreased breath sounds, accessory muscle use, rhonchi, wheezing Cardiovascular/Chest: normal peripheral pulses, regular rate, rhythm, no edema Peripheral Pulses: radial,right: 2+, radial,left: 2+, dorsalis pedis,right: 2+, dorsalis pedis,left: 2+ Gastrointestinal/Abdominal: non tender, soft Rectal Exam: deferred Back Exam: no CVA tenderness, no vertebral tenderness Extremity: normal range of motion, non-tender, normal inspection, no pedal edema, normal capillary refill 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 This appears to be currently being driven by influenza B. He will be started on medication for treatment of this. He has received several breathing treatments and supplemental oxygen. He is receiving a dose of steroid for the COPD component. Admit for continued care secondary to respiratory distress due to hypoxia.monitor blood sugars secondary to diabetes. - Results/Orders Results/Orders: chest x-ray shows COPD but no definitive infiltrate. EKG shows normal sinus rhythm with right axis deviation. Normal R-wave progression. No ST segment or T-wave changes concerning for acute ischemia. Normal sinus rhythm at 74 bpm. Normal QT interval. Laboratory Tests 12/11/18 12/11/1819 11:20 11:20 11:20 WBC 5.3 RBC 4.74 Hgb 14.0 Hct 42.3 MCV 89.3 MCH 29.6 MCHC 33.2 RDW 14.9 H Plt Count 205 MPV 7.8 Absolute Neuts (auto) 2.70 Absolute Lymphs (auto) 2.00 Absolute Monos (auto) 0.60 Absolute Eos (auto) 0.00 Absolute Basos (auto) 0.00 Neutrophils % 50.1 Lymphocytes % 37.6 Monocytes % 11.2 H Eosinophils % 0.3 L Basophils % 0.8 Sodium 140 Potassium 4.6 Chloride 111 Carbon Dioxide 17 L Anion Gap 16.6 BUN 26 H Creatinine 1.32 H BUN/Creatinine Ratio 19.7 Random Glucose 122 H Serum Osmolality 285.5 Lactic Acid 1.7 Calcium 9.3 Total Bilirubin 0.8 AST 28 ALT 17 Alkaline Phosphatase 45 Creatine Kinase 133 CK-MB (CK-2) 3.6 CK-MB (CK-2) % Not Reportable Troponin I < 0.02 Serum Total Protein 7.4 Albumin 4.1 Globulin 3.3 Albumin/Globulin Ratio 1.2 Departure - Departure Clinical Impression: Influenza, COPD with acute exacerbation Disposition: Admit Patient Departure Forms: ED Discharge - Pt. Copy, Patient Portal Self Enrollment Referrals: Ben Nguyễn MD [Primary Care Provider] - 1-2 Weeks Home Medications: Ambulatory Orders Albuterol Sulfate [Proair Hfa] 2 puff INH Q6H PRN 04/29/15 Aspirin [Baby Aspirin] 81 mg PO QD 04/29/15 Febuxostat [Uloric] 40 mg PO 1700 04/29/15 Metoprolol Succinate [Metoprolol Succinate ER] 50 mg PO DAILY 04/29/15 [place]-3 Fatty Acids [Fish Oil 1000 mg] 1 cap PO BID 04/29/15 Simvastatin 40 mg PO BEDTIME 04/29/15 Tramadol HCl 50 - 100 mg PO Q6-8H PRN 04/29/15 Trandolapril 2 mg PO DAILY 04/29/15 Verapamil HCl [Verapamil HCl Sr] 180 mg PO DAILY 04/29/15 predniSONE 5 mg PO DAILY 04/29/15 Budesonide-Formoterol Fumarate [Symbicort 160-4.5 Mcg/Act] 1 each IN BID 06/01/17 HYDROcodone 10MG/APAP 325MG [[place] ] 1 - 2 ea PO Q4H PRN 06/01/17 Sitagliptin-Metformin HCl [Janumet 50-1000 mg] 1 tab PO BID 06/01/17 Sucralfate Tab [Carafate Tab] 1 gm PO TID #100 tab 06/02/17 Calcium Citrate-Vitamin D [Calcium Citrate + D3 Maxi 315-250 mg-Unit] 1 tab PO BID 06/28/17 Dulaglutide [Trulicity] 0.75 mg SC WKLY 06/28/17 Furosemide [Lasix] 20 mg PO DAILY PRN 06/28/17 Potassium Chloride [Micro-K] 8 meq PO DAILY PRN 06/28/17 Umeclidinium [place] [Incruse Ellipta] 62.5 mcg IN DAILY 06/28/17 Azithromycin 500 mg PO DAILY #2 tab 07/01/17 Cefuroxime Axetil [Ceftin] 500 mg PO BID #10 tab 07/01/17 Decision To Admit - Decistion To Admit Decision to Admit Reason: Medical Nature Decision to Admit Date: 12/11/18 Decision to Admit Time: 12:39
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
[2018-12-11] MEDS ORDERED: ACETAMINOPHEN 325 MG TAB PO PRN (13:56)
[2018-12-11] MEDS ORDERED: IBUPROFEN 400 MG TAB PO PRN (13:56)
[2018-12-11] MEDS ORDERED: SODIUM CHLORIDE 0.9% (FLUSH) 10 ML SYG IV PRN (13:56)
[2018-12-11] MEDS ORDERED: ONDANSETRON INJ 4 MG/2 ML VIAL IV PRN (13:56)
[2018-12-11] MEDS ORDERED: GLUCAGON INJ 1 MG VIAL SUBCU PRN (13:56)
[2018-12-11] MEDS ORDERED: DEXTROSE 50% 25 GM/50 ML SYG IV PRN (13:56)
[2018-12-11] MEDS ORDERED: cefTRIAXone SODIUM 1 GM VIAL ONE (14:11)
[2018-12-11] MEDS ORDERED: BALOXAVIR MARBOXIL 20 MG TAB PO ONE ×2 (14:11→16:00)
[2018-12-11] MEDS ORDERED: SODIUM CHL 0.9% 50ML MIN-BAG+ 50 ML IVPB ONE (14:11)
[2018-12-11] MEDS ORDERED: SODIUM CHLORIDE 0.9% 250ML 250 ML ONE (14:11)
[2018-12-11] MEDS ORDERED: AZITHROMYCIN IV 500 MG VIAL IVPB ONE (14:12)
[2018-12-11] MEDS: AZITHROMYCIN IV 500 MG in SODIUM CHLORIDE 0.9% 250ML 250 ML IVPB SCH (14:26)
[2018-12-11] MEDS: cefTRIAXone SODIUM 1 GM in SODIUM CHL 0.9% 50ML MIN-BAG+ 50 ML IVPB SCH (14:26)
[2018-12-11] MEDS: IV SET AND CAP CHANGE INJ INJ SCH (14:33)
[2018-12-11] MEDS: ASPIRIN (CHEWABLE) 81 MG TAB PO SCH (14:59)
[2018-12-11] MEDS: IPRATROPIUM/ALBUTEROL 3 ML VIAL INH SCH ×2 (16:05→19:43)
[2018-12-11] MEDS ORDERED: BALOXAVIR MARBOXIL 40 MG TAB PO ONE (16:11)
[2018-12-11] MEDS: INSULIN LISPRO 100 UNITS/ML PEN SUBCU SCH ×2 (16:38→21:08)
[2018-12-11] MEDS: NON-FORMULARY MEDICATION 1 EA MIS (Febuxostat [Uloric] 40 MG) PO SCH (16:43)
[2018-12-11] MEDS: methylPREDNISolone SODIUM SUC 125 MG/2 ML VIAL IV SCH (18:15)
[2018-12-11] MEDS: SODIUM CHLORIDE 0.9% (FLUSH) 10 ML SYG IV SCH (21:09)
[2018-12-11] MEDS ORDERED: diphenhydrAMINE HCL 12.5 MG/5 ML UD PO ONE (21:17)
[2018-12-11] MEDS: MELATONIN 3 MG TAB PO SCH (21:24)
[2018-12-12] MEDS: methylPREDNISolone SODIUM SUC 125 MG/2 ML VIAL IV SCH ×4 (00:27→23:56)
[2018-12-12] MEDS: BENZOCAINE-MENTH LOZ (CEPACOL) 1 EA LOZ MT PRN ×3 (01:05→14:08)
[2018-12-12] MEDS ORDERED: TEMAZEPAM 15 MG CAP PO PRN (01:20)
[2018-12-12] MEDS: PANTOPRAZOLE SODIUM IV 40 MG VIAL IV SCH (06:24)
--- NOTE | 2018-12-12 07:14 | RAD ---
EXAM DESCRIPTION: Chest,2 Views CLINICAL HISTORY: Pneumonia COMPARISON: December 11, 2018 FINDINGS: The cardiomediastinal silhouette is unremarkable. There is no airspace consolidation or pleural effusion. Subsegmental atelectasis or scarring is noted in both lung bases. Mild chronic elevation of the left hemidiaphragm. There is no pneumothorax or acute fracture. IMPRESSION: Mild bibasilar subsegmental atelectasis or scarring without radiographic evidence of pneumonia. If clinical suspicion persists, follow-up chest radiograph or chest CT should be considered. Electronically signed by: Steve Jade MD 12/12/2018 7:12 AM CDT
[2018-12-12] MEDS: INSULIN LISPRO 100 UNITS/ML PEN SUBCU SCH ×6 (07:21→21:17)
[2018-12-12] MEDS: IPRATROPIUM/ALBUTEROL 3 ML VIAL INH SCH ×4 (07:35→19:59)
[2018-12-12] MEDS: INSULIN DETEMIR 100 UNITS/ML PEN SUBCU SCH (08:42)
[2018-12-12] MEDS: VERAPAMIL ER 120 MG TAB PO SCH (08:44)
[2018-12-12] MEDS: METOPROLOL SUCCINATE XL 50 MG TAB PO SCH (08:44)
[2018-12-12] MEDS: ASPIRIN (CHEWABLE) 81 MG TAB PO SCH (08:44)
[2018-12-12] MEDS ORDERED: INSULIN DETEMIR 100 UNITS/ML PEN SUBCU ONE (08:44)
[2018-12-12] MEDS: SODIUM CHLORIDE 0.9% (FLUSH) 10 ML SYG IV SCH ×2 (08:46→21:19)
[2018-12-12] MEDS: NON-FORMULARY MEDICATION 1 EA MIS (Budesonide-Formoterol Fumarate [Symbicort 160-4.5 Mcg/A IN SCH (09:08)
[2018-12-12] MEDS: TRANDOLAPRIL 2 MG PO SCH (09:30)
[2018-12-12] MEDS: HYDROcodone 10MG/APAP 325MG 1 EA TAB PO PRN ×2 (11:35→16:35)
[2018-12-12] MEDS ORDERED: SODIUM CHL 0.9% 50ML MIN-BAG+ 50 ML IVPB ONE (13:10)
[2018-12-12] MEDS ORDERED: cefTRIAXone SODIUM 1 GM VIAL ONE (13:11)
[2018-12-12] MEDS: cefTRIAXone SODIUM 1 GM in SODIUM CHL 0.9% 50ML MIN-BAG+ 50 ML IVPB SCH (13:12)
[2018-12-12] MEDS ORDERED: AZITHROMYCIN IV 500 MG VIAL IVPB ONE (13:58)
[2018-12-12] MEDS ORDERED: SODIUM CHLORIDE 0.9% 250ML 250 ML ONE (13:58)
[2018-12-12] MEDS: AZITHROMYCIN IV 500 MG in SODIUM CHLORIDE 0.9% 250ML 250 ML IVPB SCH (14:02)
[2018-12-12] MEDS: ALPRAZolam 0.5 MG TAB PO PRN (16:34)
[2018-12-12] MEDS: NON-FORMULARY MEDICATION 1 EA MIS (Febuxostat [Uloric] 40 MG) PO SCH (18:11)
[2018-12-12] MEDS: BUDESONIDE NEBS 0.5 MG/2 ML INH NEB SCH (19:58)
[2018-12-12] MEDS: MELATONIN 3 MG TAB PO SCH (21:18)
[2018-12-13] MEDS: NON-FORMULARY MEDICATION 1 EA MIS (Budesonide-Formoterol Fumarate [Symbicort 160-4.5 Mcg/A IN SCH ×2 (00:08→20:00)
[2018-12-13] MEDS: IPRATROPIUM/ALBUTEROL 3 ML VIAL INH PRN (05:21)
[2018-12-13] MEDS: methylPREDNISolone SODIUM SUC 125 MG/2 ML VIAL IV SCH (05:53)
[2018-12-13] MEDS: PANTOPRAZOLE SODIUM IV 40 MG VIAL IV SCH (06:11)
[2018-12-13] MEDS: INSULIN LISPRO 100 UNITS/ML PEN SUBCU SCH ×7 (07:23→21:18)
--- NOTE | 2018-12-13 07:30 | RAD ---
CHEST 12/13/2018 CLINICAL HISTORY: COPD exacerbation. COMPARISON: Chest 12/12/2018. TECHNIQUE: [AP] Chest. FINDINGS: Heart is normal in size. Normal pulmonary vascularity.. Lungs are clear. Lungs are hyperinflated. No pneumothorax. No pleural fluid. Unremarkable soft tissues and bones. IMPRESSION: 1. COPD. No edema or pneumonia. Electronically signed by: April Kaba DO 12/13/2018 7:26 AM CDT
[2018-12-13] MEDS ORDERED: NON-FORMULARY MEDICATION 1 EA MIS (Budesonide-Formoterol Fumarate [Symbicort 160-4.5 Mcg/A IN SCH (08:00)
[2018-12-13] MEDS: ASPIRIN (CHEWABLE) 81 MG TAB PO SCH (08:19)
[2018-12-13] MEDS: VERAPAMIL ER 120 MG TAB PO SCH (08:19)
[2018-12-13] MEDS: METOPROLOL SUCCINATE XL 50 MG TAB PO SCH (08:19)
[2018-12-13] MEDS: BUDESONIDE NEBS 0.5 MG/2 ML INH NEB SCH ×2 (08:26→20:00)
[2018-12-13] MEDS: IPRATROPIUM/ALBUTEROL 3 ML VIAL INH SCH ×4 (08:26→20:00)
[2018-12-13] MEDS: BENZOCAINE-MENTH LOZ (CEPACOL) 1 EA LOZ MT PRN (08:29)
[2018-12-13] MEDS: SODIUM CHLORIDE 0.9% (FLUSH) 10 ML SYG IV SCH ×2 (08:29→20:53)
[2018-12-13] MEDS: TRANDOLAPRIL 2 MG PO SCH (09:25)
--- NOTE | 2018-12-13 09:27 | PN ---
DATE: 12/11/18 SUPERVISING PHYSICIAN: Ben Nguyễn MD SUBJECTIVE: The patient continues to have a significant amount of shortness of breath. He does fine as long as he is laying still. He is still unable to ambulate without rapidly desatting. He has been afebrile since admission. He has had no nausea or vomiting. OBJECTIVE: VITAL SIGNS: Temperature 98.6, pulse 89, blood pressure 148/74, respirations 18, saturation 96% on 2.5 liter nasal cannula. Weight is at 83.4 kg. GENERAL: Patient is resting comfortably, appears to be in no acute distress. CHEST: Lung sounds were clear, just diminished towards the bases bilaterally. HEART: Regular rate. ABDOMEN: Soft, non-tender, bowel sounds are positive. EXTREMITIES: Without cyanosis, clubbing, or edema. NEUROLOGIC: Alert and oriented x 3. LABORATORY: White count down to 2,700, hemoglobin 12.4, hematocrit 37.7, platelet count 196,000, differential does show a left shift with increased bands, neutrophils at 2%. Blood gas analysis today given that he was not making very good progress showed he had a pH 7.45 on 3 liter nasal cannula saturation 94.6% with PC02 of 21, P02 of 64. Second set of ABG after patient was placed on BiPAP showed he was maintaining 02 levels at 89%, CO2 was up a little bit to 25, pH 7.41 and 02 saturation of 98% and that was on a BiPAP at 30% FI02. Chemistries show BUN 25, creatinine 1.31 which is down a little bit from admission. Blood sugars still remain elevated between 244 and 349. MICROBIOLOGY: Blood culture negative at 24 hours. Again, he was positive for influenza B by PCR. RADIOLOGY: Repeat chest x-ray today per radiology interpretation shows mild bibasilar subsegmental atelectasis or scarring without any radiographic evidence of pneumonia. ASSESSMENT: 1. Acute exacerbation of chronic obstructive pulmonary disease secondary to Influenza B infection with persistent hypoxemia as noted on ABG showing some improvement with BiPAP. 2. Diabetes mellitus type 2. 3. Hypertension. 4. Hyperlipidemia. 5. Chronic gout. 6. Previous transient ischemic attack. 7. Chronic left hemidiaphragm paralysis diagnosed in [address] Simms. 8. Osteopenia. PLAN: Will try BiPAP trial to see if this will help decrease some of his effort to breathe. I think he is feeling 02 starved and a little anxious. Will go ahead and give him some Xanax and then try a little BiPAP and see if this will help decrease his level of anxiety and improve his oxygenation level as well as recruit him some additional lung frias. Again, he does have influenza B infection. He remains on DVT prophylaxis as per protocol. I am still working to get his blood sugars better controlled. He is on Levemir and additional AC coverage with Lispro. He does remain on Duoneb treatments. He is still showing slow improvement and given his clinical presentation, we will go ahead and continue with his aggressive management and Duoneb treatments. I do not think he will tolerate CPT, again will try some BiPAP at low settings. Until he can transition to outpatient management, we will continue to monitor and treat as needed. #[id number] [facility]
[2018-12-13] MEDS: HYDROcodone 10MG/APAP 325MG 1 EA TAB PO PRN ×3 (09:28→22:19)
[2018-12-13] MEDS ORDERED: LACTATED RINGERS 1,000 ML IVS ONE (09:54)
[2018-12-13] MEDS ORDERED: NON-FORMULARY MEDICATION 1 EA MIS (Budesonide-Formoterol Fumarate [Symbicort 160-4.5 Mcg/A INH ONE (10:00)
[2018-12-13] MEDS: methylPREDNISolone SODIUM SUC 40 MG/ML VIAL IV SCH ×3 (12:19→23:48)
[2018-12-13] MEDS ORDERED: cefTRIAXone SODIUM 1 GM VIAL ONE (13:44)
[2018-12-13] MEDS ORDERED: SODIUM CHL 0.9% 50ML MIN-BAG+ 50 ML IVPB ONE (13:44)
[2018-12-13] MEDS: cefTRIAXone SODIUM 1 GM in SODIUM CHL 0.9% 50ML MIN-BAG+ 50 ML IVPB SCH (13:47)
[2018-12-13] MEDS ORDERED: SODIUM CHLORIDE 0.9% 250ML 250 ML ONE (14:33)
[2018-12-13] MEDS ORDERED: AZITHROMYCIN IV 500 MG VIAL IVPB ONE (14:34)
[2018-12-13] MEDS: AZITHROMYCIN IV 500 MG in SODIUM CHLORIDE 0.9% 250ML 250 ML IVPB SCH (14:39)
--- NOTE | 2018-12-13 14:47 | PN ---
SUPERVISING PHYSICIAN: Ben Nguyễn MD DATE: 12/13/18 SUBJECTIVE: The patient states he feels a little bit better today than he did yesterday. He is not quite as short of breath. He states he did wear the BiPAP and actually slept better than he has in years. He also got some Xanax prior to being put on the BiPAP, so I am not really sure which one was the culprit for helping him sleep. OBJECTIVE: VITAL SIGNS: Blood pressure 138/90. Heart rate 91. Respiratory rate 16. Temperature 97.0. Oxygen saturation 96% on 3 liters nasal cannula. GENERAL: Mr. Urban is a 67-year-old male patient in no active distress currently. NEUROLOGIC: Alert and oriented. LUNGS: Diminished, but otherwise clear to auscultation bilaterally. CARDIOVASCULAR: Regular rate and rhythm. Normal S1, S2. ABDOMEN: Soft. Positive bowel sounds. No tenderness to palpation. GENITOURINARY: Deferred. EXTREMITIES: Lower extremities with no significant edema. Pulses 2+. Capillary refill is less than 2 seconds. LABORATORY: Chest x-ray with no consolidation or pulmonary vascular congestion. White count 6.6, hemoglobin 11.6, hematocrit 34.3, platelet count 212. He did have a blood gas yesterday which showed pH 7.41, pCO2 25, pO2 89, bicarb 15.3, base excess -7.7. Chemistries show sodium 140, potassium 3.9, chloride 112, CO2 16, BUN 21, creatinine 0.96, glucose 282, calcium 8.5. ASSESSMENT: 1. Exacerbation of chronic obstructive pulmonary disease. 2. Influenza, type B. 3. Diabetes mellitus, type 2, uncontrolled. 4. Hypertension. 5. Hyperlipidemia. 6. Chronic gout. 7. Previous transient ischemic attack. 8. Chronic left hemidiaphragm paralysis. 9. Osteopenia. PLAN: The patient utilized BiPAP last night and did well with that. We will continue that as needed. At this point, he does feel a little bit better. I am going to reduce his steroids to 40 mg q.6h. from the 60 mg q.6h. Hopefully, this will help with his uncontrolled blood sugars. If he continues to do well, we will rapidly reduce the steroids. I hate to go up too much on the insulin given that he could become hypoglycemic once we go down on the steroids. We will continue all other therapy at this time. [facility][id number] [facility]
[2018-12-13] MEDS: NON-FORMULARY MEDICATION 1 EA MIS (Febuxostat [Uloric] 40 MG) PO SCH (17:45)
[2018-12-13] MEDS: MELATONIN 3 MG TAB PO SCH (20:51)
[2018-12-13] MEDS: ALPRAZolam 0.5 MG TAB PO PRN (20:51)
[2018-12-14] MEDS: methylPREDNISolone SODIUM SUC 40 MG/ML VIAL IV SCH ×3 (05:49→17:09)
[2018-12-14] MEDS: PANTOPRAZOLE SODIUM IV 40 MG VIAL IV SCH (06:06)
[2018-12-14] MEDS: INSULIN LISPRO 100 UNITS/ML PEN SUBCU SCH ×7 (07:27→20:59)
[2018-12-14] MEDS: IPRATROPIUM/ALBUTEROL 3 ML VIAL INH SCH ×4 (07:52→20:31)
[2018-12-14] MEDS: BUDESONIDE NEBS 0.5 MG/2 ML INH NEB SCH ×2 (07:52→20:31)
[2018-12-14] MEDS: NON-FORMULARY MEDICATION 1 EA MIS (Budesonide-Formoterol Fumarate [Symbicort 160-4.5 Mcg/A IN SCH ×2 (07:52→21:00)
[2018-12-14] MEDS ORDERED: INSULIN DETEMIR 100 UNITS/ML PEN SUBCU ONE (08:24)
[2018-12-14] MEDS: INSULIN DETEMIR 100 UNITS/ML PEN SUBCU SCH (08:25)
[2018-12-14] MEDS: TRANDOLAPRIL 2 MG PO SCH (08:27)
[2018-12-14] MEDS: METOPROLOL SUCCINATE XL 50 MG TAB PO SCH (08:27)
[2018-12-14] MEDS: ASPIRIN (CHEWABLE) 81 MG TAB PO SCH (08:27)
[2018-12-14] MEDS: SODIUM CHLORIDE 0.9% (FLUSH) 10 ML SYG IV SCH ×2 (08:27→21:01)
[2018-12-14] MEDS: VERAPAMIL ER 120 MG TAB PO SCH (08:27)
[2018-12-14] MEDS: ALPRAZolam 0.5 MG TAB PO PRN ×2 (08:54→22:28)
[2018-12-14] MEDS: IPRATROPIUM/ALBUTEROL 3 ML VIAL INH PRN (09:00)
[2018-12-14] MEDS: HYDROcodone 10MG/APAP 325MG 1 EA TAB PO PRN ×3 (10:00→22:28)
[2018-12-14] MEDS ORDERED: cefTRIAXone SODIUM 1 GM VIAL ONE (13:39)
[2018-12-14] MEDS ORDERED: SODIUM CHL 0.9% 50ML MIN-BAG+ 50 ML IVPB ONE (13:39)
[2018-12-14] MEDS: cefTRIAXone SODIUM 1 GM in SODIUM CHL 0.9% 50ML MIN-BAG+ 50 ML IVPB SCH (13:42)
--- NOTE | 2018-12-14 14:03 | PN ---
SUPERVISING PHYSICIAN: Ben Nguyễn MD DATE: 12/14/18 SUBJECTIVE: The patient states he feels fair, about the same as he did yesterday, but right now, he is pretty short of breath. He just got out of the shower and with any exertion, he gets significant shortness of breath. They did reduce his oxygen from 3 liters to 2 liters and he feels like this is part of the issue, however, his O2 saturations are really unchanged. OBJECTIVE: VITAL SIGNS: Blood pressure 129/75. Heart rate 93. Respiratory rate 18. Temperature 97.3. Oxygen saturation 95% on 2 liters nasal cannula. GENERAL: Mr. Urban is a 68-year-old male patient in mild respiratory distress after some activity. NEUROLOGIC: Alert and oriented. LUNGS: Some coarse sounds bilaterally along with some expiratory wheezing. CARDIOVASCULAR: Regular rate and rhythm. Normal S1, S2. ABDOMEN: Soft. Positive bowel sounds. EXTREMITIES: Lower extremities with some ankle edema. Pulses 2+. Capillary refill is less than 2 seconds. LABORATORY: His glucoses have still been elevated. I did note the Levemir was on hold. He takes Trulicity at home, but that is not up here at this time. ASSESSMENT: 1. Chronic obstructive pulmonary disease exacerbation. 2. Influenza, type B. 3. Diabetes mellitus, type 2, uncontrolled. 4. Hypertension. 5. Hyperlipidemia. 6. Chronic gout. 7. Previous transient ischemic attack. 8. Chronic left hemidiaphragm paralysis. 9. Osteopenia. PLAN: Given he still has significant exertional dyspnea along with current wheezing, I do not want to decrease the dose of steroid at this time. He is still having uncontrolled glucoses, however, I did note the Levemir was on hold for some reason. I am going to resume this at 14 units daily. We will see how he does with this. He may need this to be adjusted upward. Unfortunately, he does not have the Trulicity that he takes on a normal basis. I will recheck his labs tomorrow as well to see what those look like. He does appear to still be improving slowly, however, with any activity he gets pretty dyspneic. This may be a long process. He may need Swing Bed and oxygen at home. [id number]
[2018-12-14] MEDS ORDERED: AZITHROMYCIN IV 500 MG VIAL IVPB ONE (14:15)
[2018-12-14] MEDS ORDERED: SODIUM CHLORIDE 0.9% 250ML 250 ML ONE (14:15)
[2018-12-14] MEDS: AZITHROMYCIN IV 500 MG in SODIUM CHLORIDE 0.9% 250ML 250 ML IVPB SCH (14:20)
[2018-12-14] MEDS: IV SET AND CAP CHANGE INJ INJ SCH (15:17)
[2018-12-14] MEDS: NON-FORMULARY MEDICATION 1 EA MIS (Febuxostat [Uloric] 40 MG) PO SCH (17:09)
[2018-12-14] MEDS: MELATONIN 3 MG TAB PO SCH (21:01)
[2018-12-15] MEDS: methylPREDNISolone SODIUM SUC 40 MG/ML VIAL IV SCH ×4 (00:04→21:35)
[2018-12-15] MEDS: PANTOPRAZOLE SODIUM IV 40 MG VIAL IV SCH (06:07)
[2018-12-15] MEDS: INSULIN LISPRO 100 UNITS/ML PEN SUBCU SCH ×7 (08:04→20:58)
[2018-12-15] MEDS: NON-FORMULARY MEDICATION 1 EA MIS (Budesonide-Formoterol Fumarate [Symbicort 160-4.5 Mcg/A IN SCH ×2 (08:11→20:15)
[2018-12-15] MEDS: IPRATROPIUM/ALBUTEROL 3 ML VIAL INH SCH ×4 (08:11→20:15)
[2018-12-15] MEDS: BUDESONIDE NEBS 0.5 MG/2 ML INH NEB SCH ×2 (08:11→20:15)
[2018-12-15] MEDS ORDERED: INSULIN DETEMIR 100 UNITS/ML PEN SUBCU SCH (08:30)
[2018-12-15] MEDS: TRANDOLAPRIL 2 MG PO SCH (08:38)
[2018-12-15] MEDS: METOPROLOL SUCCINATE XL 50 MG TAB PO SCH (08:39)
[2018-12-15] MEDS: ASPIRIN (CHEWABLE) 81 MG TAB PO SCH (08:39)
[2018-12-15] MEDS: VERAPAMIL ER 120 MG TAB PO SCH (08:41)
[2018-12-15] MEDS: SODIUM CHLORIDE 0.9% (FLUSH) 10 ML SYG IV SCH ×2 (08:44→20:59)
[2018-12-15] MEDS: HYDROcodone 10MG/APAP 325MG 1 EA TAB PO PRN ×3 (08:55→20:56)
[2018-12-15] MEDS ORDERED: cefTRIAXone SODIUM 1 GM VIAL ONE (12:59)
[2018-12-15] MEDS ORDERED: SODIUM CHLORIDE 0.9% 250ML 250 ML ONE (12:59)
[2018-12-15] MEDS ORDERED: SODIUM CHL 0.9% 50ML MIN-BAG+ 50 ML IVPB ONE (12:59)
[2018-12-15] MEDS ORDERED: AZITHROMYCIN IV 500 MG VIAL IVPB ONE (13:00)
--- NOTE | 2018-12-15 13:47 | PN ---
SUPERVISING PHYSICIAN: Kyle Ventura MD DATE: 12/15/18 SUBJECTIVE: The patient still complains of shortness of breath with any exertion. He has a very difficult time getting to the bathroom without getting extremely short of breath. He denies chest pain, nausea, vomiting, diarrhea. OBJECTIVE: VITAL SIGNS: Temperature 97.4. Heart rate 100. Blood pressure 130/79. Respiratory rate 20. O2 saturation 92% on 2 liters nasal cannula. RESPIRATORY: Scattered rhonchi throughout, diminished at the bases. There are some expiratory wheezes in his right lung frias. He is tachypneic at times. He has to speak in short phrases due to his shortness of breath. CARDIAC: Regular rate and rhythm. GASTROINTESTINAL: Abdomen is soft, nondistended, nontender. Bowel sounds are positive. NEUROLOGIC: Awake, alert and oriented times three. LABORATORY: WBCs 6.6, hemoglobin 11.6, hematocrit 34.3. He has a left shift on his differential. Blood sugars have run between 284 and 379. Preliminary blood cultures show no growth after 4 days. All other labs and films have been reviewed via the EMR. ASSESSMENT: 1. Chronic obstructive pulmonary disease with exacerbation. 2. Influenza, type B. 3. Diabetes mellitus, type 2, uncontrolled. 4. Hypertension. 5. Hyperlipidemia. 6. Chronic gout. 7. Previous transient ischemic attack. 8. Chronic left hemidiaphragm paralysis. 9. Osteopenia. PLAN: We will continue present supportive care. I have ordered ambulation study for home oxygen qualification. He still has quite a bit of exertional dyspnea as well as some wheezing. I have decreased his steroids to q.8h. and we will have to monitor that closely. I have also ordered some labs tomorrow. He may have to be discharged from Acute Care and readmitted to Swing Bed due to his extremely slow clinical improvement. On discharge, he would benefit from a sleep study as he is using BiPAP with success here at the hospital. He will also need some pulmonary rehab. I have increased his Levemir to 16 units daily and I may have to go up to that for now due to his steroid dosing. If that comes down, we may be able to titrate down his Levemir. Otherwise, we will continue to monitor the patient closely and follow as needed. #[id number] [facility]
[2018-12-15] MEDS: cefTRIAXone SODIUM 1 GM in SODIUM CHL 0.9% 50ML MIN-BAG+ 50 ML IVPB SCH (13:52)
[2018-12-15] MEDS: AZITHROMYCIN IV 500 MG in SODIUM CHLORIDE 0.9% 250ML 250 ML IVPB SCH (14:45)
[2018-12-15] MEDS ORDERED: INSULIN LISPRO 100 UNITS/ML PEN SUBCU ONE (17:55)
[2018-12-15] MEDS: NON-FORMULARY MEDICATION 1 EA MIS (Febuxostat [Uloric] 40 MG) PO SCH (18:01)
[2018-12-15] MEDS: ALPRAZolam 0.5 MG TAB PO PRN (20:56)
[2018-12-15] MEDS: MELATONIN 3 MG TAB PO SCH (20:56)
[2018-12-16] MEDS: methylPREDNISolone SODIUM SUC 40 MG/ML VIAL IV SCH ×3 (05:45→22:15)
[2018-12-16] MEDS: PANTOPRAZOLE SODIUM IV 40 MG VIAL IV SCH (06:07)
[2018-12-16] MEDS: INSULIN LISPRO 100 UNITS/ML PEN SUBCU SCH ×7 (07:41→21:24)
[2018-12-16] MEDS: HYDROcodone 10MG/APAP 325MG 1 EA TAB PO PRN ×4 (07:53→22:15)
[2018-12-16] MEDS: ALPRAZolam 0.5 MG TAB PO PRN (07:57)
[2018-12-16] MEDS: NON-FORMULARY MEDICATION 1 EA MIS (Budesonide-Formoterol Fumarate [Symbicort 160-4.5 Mcg/A IN SCH ×2 (07:58→19:49)
[2018-12-16] MEDS: BUDESONIDE NEBS 0.5 MG/2 ML INH NEB SCH ×2 (07:58→19:50)
[2018-12-16] MEDS: IPRATROPIUM/ALBUTEROL 3 ML VIAL INH SCH ×4 (07:58→19:50)
[2018-12-16] MEDS: SODIUM CHLORIDE 0.9% (FLUSH) 10 ML SYG IV SCH ×2 (08:41→20:25)
[2018-12-16] MEDS: VERAPAMIL ER 120 MG TAB PO SCH (08:41)
[2018-12-16] MEDS: METOPROLOL SUCCINATE XL 50 MG TAB PO SCH (08:41)
[2018-12-16] MEDS: NYSTATIN SUSPENSION 500,000/5 ML UD MT SCH ×4 (08:41→20:26)
[2018-12-16] MEDS: ASPIRIN (CHEWABLE) 81 MG TAB PO SCH (08:41)
[2018-12-16] MEDS: INSULIN DETEMIR 100 UNITS/ML PEN SUBCU SCH (08:42)
[2018-12-16] MEDS: TRANDOLAPRIL 2 MG PO SCH (09:39)
[2018-12-16] MEDS ORDERED: SODIUM CHLORIDE 0.9% 250ML 250 ML ONE (12:32)
[2018-12-16] MEDS ORDERED: cefTRIAXone SODIUM 1 GM VIAL ONE (12:32)
[2018-12-16] MEDS ORDERED: SODIUM CHL 0.9% 50ML MIN-BAG+ 50 ML IVPB ONE (12:32)
[2018-12-16] MEDS ORDERED: AZITHROMYCIN IV 500 MG VIAL IVPB ONE (12:32)
[2018-12-16] MEDS: cefTRIAXone SODIUM 1 GM in SODIUM CHL 0.9% 50ML MIN-BAG+ 50 ML IVPB SCH (13:05)
--- NOTE | 2018-12-16 14:05 | PN ---
DATE: 12/16/18 SUPERVISING PHYSICIAN: Kyle Ventura M.D. SUBJECTIVE: The patient is sitting up in his chair in his hospital room. He is sleeping. He awakens easily. He continues complaints of shortness of breath with any exertion but he does feel like he is improving. He continues to also be very weak when he does any kind of exertion. OBJECTIVE: VITAL SIGNS: Temperature 97.5, heart rate 85, blood pressure 165/76, respiratory rate 22, O2 sat 93% on 2 liters nasal cannula. RESPIRATORY: Expiratory wheezing throughout all lung frias. He is diminished at the bases. He is tachypneic with speech and has to speak in 3 or 4 word phrases due to his shortness of breath. CARDIAC: Regular rate and rhythm. GASTROINTESTINAL: Abdomen is soft, nondistended, non-tender. Bowel sounds ear positive. NEUROLOGIC: He is awake, alert and oriented times three. LABORATORY: WBCs are 6.1, height 11.1, hematocrit 33.1. He has a left shift on differential. Blood sugars: He had greater than 400 last night and was given additional insulin coverage. This morning, it has run between 244 and 361. Calcium is slightly low at 7.9, BUN 22, carbon dioxide 17. Final blood cultures show no growth after 5 days. All other labs and films have been reviewed via the EMR. ASSESSMENT: 1. Chronic obstructive pulmonary disease with exacerbation that is slowly improving. 2. Influenza, type B. 3. Diabetes mellitus, type 2, uncontrolled. 4. Hypertension. 5. Hyperlipidemia. 6. Chronic gout. 7. Previous transient ischemic attack. 8. Chronic left hemidiaphragm paralysis. 9. Osteopenia. PLAN: We will continue present supportive care. He is clinically improving but it is at a very slow pace. If he continues to require IV steroids and he continues to desaturate in his oxygenation, will need to most likely discharge him from the Acute Care setting and place him in Swing Bed. He will need home oxygen on discharge and will need to get that ordered on Tuesday. He also will need a sleep study on discharge as well as some pulmonary rehab. I have increased his Levemir to 20 units daily. Hopefully we can get his blood sugars under a little bit better control with his steroids. His coughing has improved. I will do lab and a chest x-ray on Tuesday, but for now will continue with good pulmonary hygiene and titrate his steroids down as he improves as well as reevaluate his Levemir dosing on discharge. Will continue to monitor closely and follow as needed. [facility][id number] [facility]
[2018-12-16] MEDS: AZITHROMYCIN IV 500 MG in SODIUM CHLORIDE 0.9% 250ML 250 ML IVPB SCH (14:40)
[2018-12-16] MEDS: NON-FORMULARY MEDICATION 1 EA MIS (Febuxostat [Uloric] 40 MG) PO SCH (17:35)
[2018-12-16] MEDS: MELATONIN 3 MG TAB PO SCH (20:26)
[2018-12-17] MEDS: methylPREDNISolone SODIUM SUC 40 MG/ML VIAL IV SCH ×3 (06:02→20:28)
[2018-12-17] MEDS: PANTOPRAZOLE SODIUM IV 40 MG VIAL IV SCH (06:11)
[2018-12-17] MEDS: HYDROcodone 10MG/APAP 325MG 1 EA TAB PO PRN ×3 (06:13→20:07)
[2018-12-17] MEDS ORDERED: cloNIDine HCL 0.1 MG TAB ONE (06:24)
[2018-12-17] MEDS ORDERED: cloNIDine HCL 0.1 MG TAB PO ONE (06:27)
[2018-12-17] MEDS: INSULIN LISPRO 100 UNITS/ML PEN SUBCU SCH ×7 (07:23→21:01)
[2018-12-17] MEDS: BUDESONIDE NEBS 0.5 MG/2 ML INH NEB SCH ×2 (07:59→20:19)
[2018-12-17] MEDS: IPRATROPIUM/ALBUTEROL 3 ML VIAL INH SCH ×4 (07:59→20:19)
[2018-12-17] MEDS: NON-FORMULARY MEDICATION 1 EA MIS (Budesonide-Formoterol Fumarate [Symbicort 160-4.5 Mcg/A IN SCH ×2 (07:59→20:19)
[2018-12-17] MEDS: INSULIN DETEMIR 100 UNITS/ML PEN SUBCU SCH (08:48)
[2018-12-17] MEDS: TRANDOLAPRIL 2 MG PO SCH (08:51)
[2018-12-17] MEDS: METOPROLOL SUCCINATE XL 50 MG TAB PO SCH (08:51)
[2018-12-17] MEDS: SODIUM CHLORIDE 0.9% (FLUSH) 10 ML SYG IV SCH ×2 (08:51→20:28)
[2018-12-17] MEDS: NYSTATIN SUSPENSION 500,000/5 ML UD MT SCH ×4 (08:51→20:28)
[2018-12-17] MEDS: VERAPAMIL ER 120 MG TAB PO SCH (08:51)
[2018-12-17] MEDS: ASPIRIN (CHEWABLE) 81 MG TAB PO SCH (08:51)
[2018-12-17] MEDS ORDERED: cefTRIAXone SODIUM 1 GM VIAL ONE (13:00)
[2018-12-17] MEDS ORDERED: SODIUM CHL 0.9% 50ML MIN-BAG+ 50 ML IVPB ONE ×2 (13:00→13:44)
[2018-12-17] MEDS ORDERED: SODIUM CHLORIDE 0.9% 250ML 250 ML ONE (13:00)
[2018-12-17] MEDS ORDERED: AZITHROMYCIN IV 500 MG VIAL IVPB ONE ×2 (13:01→13:44)
[2018-12-17] MEDS: cefTRIAXone SODIUM 1 GM in SODIUM CHL 0.9% 50ML MIN-BAG+ 50 ML IVPB SCH (13:46)
[2018-12-17] MEDS: AZITHROMYCIN IV 500 MG in SODIUM CHLORIDE 0.9% 250ML 250 ML IVPB SCH (14:16)
[2018-12-17] MEDS: IV SET AND CAP CHANGE INJ INJ SCH (14:20)
[2018-12-17] MEDS: NON-FORMULARY MEDICATION 1 EA MIS (Febuxostat [Uloric] 40 MG) PO SCH (16:21)
--- NOTE | 2018-12-17 17:34 | PN ---
DATE: 12/17/18 SUPERVISING PHYSICIAN: Kyle Ventura M.D. SUBJECTIVE: The patient is sitting up in his chair in his room. He looks much improved from yesterday. He actually feels much better and actually walked to the bathroom without getting extremely short of breath as he had been doing over the past 4 or 5 days. Denies any chest pain, nausea, vomiting, diarrhea or constipation. OBJECTIVE: VITAL SIGNS: Temperature 97.8, heart rate 70, blood pressure 157/80, respiratory rate 20, O2 sat is 93% on 2 liters nasal cannula. RESPIRATORY: Some scattered expiratory wheezes in the right lower lung frias, otherwise he has very mild scattered rhonchi throughout, but much improved since yesterday. He still get slightly tachypneic with speaking, but again much improved since yesterday. CARDIAC: Regular rate and rhythm. GASTROINTESTINAL: Abdomen is soft, nondistended, non-tender. Bowel sounds are positive. NEUROLOGIC: He is awake, alert and oriented times three. LABORATORY: Blood sugars have run between 176 and 351. All other labs and films have been reviewed via the EMR. ASSESSMENT: 1. Chronic obstructive pulmonary disease with exacerbation that is slowly improving. 2. Influenza, type B. 3. Diabetes mellitus, type 2, uncontrolled. 4. Hypertension. 5. Hyperlipidemia. 6. Chronic gout. 7. Previous transient ischemic attack. 8. Chronic left hemidiaphragm paralysis. 9. Osteopenia. PLAN: We will continue present supportive care. I have consulted Physical Therapy tomorrow to evaluate for Swing Bed admission. His Pulmicort has been decreased to 1 mg b.i.d. and I have also decreased his IV Solu-Medrol. Will discontinue that tonight and start him on oral prednisone tomorrow. His Levemir was increased over the last couple of days. He is up to 20 units. As the steroids are titrated down will need to watch his blood sugars, although at this time his blood sugars are remaining fairly high. I have done a chest x-ray and some lab in the morning. He has improved so much over the last 24 hours that he may be able to go home tomorrow or Tuesday. He will need close followup with Dr. Nguyễn. He will need a sleep study as well as pulmonary rehab. His oxygen will need to be ordered for home as he qualified for home O2 and that will need to be set up prior to his discharge. Again, he may need Swing Bed due to his poor pulmonary status, but since his improvement he may be able to go home in the next 1 to 2 days. Will continue to monitor closely and follow as needed. [facility][id number] [facility]
[2018-12-17] MEDS: MELATONIN 3 MG TAB PO SCH (20:28)
[2018-12-18] MEDS: HYDROcodone 10MG/APAP 325MG 1 EA TAB PO PRN ×3 (01:53→13:44)
[2018-12-18] MEDS ORDERED: PANTOPRAZOLE SODIUM TAB 40 MG PO SCH (06:30)
--- NOTE | 2018-12-18 07:18 | RAD ---
Study: Frontal and Lateral Radiographs of the Chest. Indication: copd Comparison: December 13, 2018 Impression: Heart size normal. Emphysema redemonstrated. No new consolidation, pleural effusion, or pneumothorax. Persistent scarring at the lung bases. No acute osseous abnormality. Electronically signed by: Medardo Medrano MD 12/18/2018 7:16 AM CDT
[2018-12-18] MEDS: INSULIN LISPRO 100 UNITS/ML PEN SUBCU SCH ×4 (07:34→11:38)
[2018-12-18] MEDS: METOPROLOL SUCCINATE XL 50 MG TAB PO SCH (08:07)
[2018-12-18] MEDS: ASPIRIN (CHEWABLE) 81 MG TAB PO SCH (08:07)
[2018-12-18] MEDS: VERAPAMIL ER 120 MG TAB PO SCH (08:07)
[2018-12-18] MEDS: SODIUM CHLORIDE 0.9% (FLUSH) 10 ML SYG IV SCH (08:08)
[2018-12-18] MEDS: NYSTATIN SUSPENSION 500,000/5 ML UD MT SCH ×2 (08:08→12:54)
[2018-12-18] MEDS: TRANDOLAPRIL 2 MG PO SCH (08:08)
[2018-12-18] MEDS: INSULIN DETEMIR 100 UNITS/ML PEN SUBCU SCH (08:09)
[2018-12-18] MEDS: NON-FORMULARY MEDICATION 1 EA MIS (Budesonide-Formoterol Fumarate [Symbicort 160-4.5 Mcg/A IN SCH (08:20)
[2018-12-18] MEDS: IPRATROPIUM/ALBUTEROL 3 ML VIAL INH SCH ×2 (08:20→12:56)
[2018-12-18] MEDS: BUDESONIDE NEBS 0.5 MG/2 ML INH NEB SCH (08:20)
[2018-12-18] MEDS ORDERED: predniSONE 20 MG TAB PO SCH (09:00)
[2018-12-18 13:51] VITALS: BP 151/76; TEMP 97.4; O2SAT 96
--- NOTE | 2018-12-20 08:02 | DS ---
SUPERVISING PHYSICIAN: Andry Ellison MD ADMISSION DIAGNOSIS: 1. Acute exacerbation of chronic obstructive pulmonary disease secondary to Influenza B infection. 2. Diabetes mellitus, type 2. 3. Hypertension. 4. Hyperlipidemia. 5. Chronic gout. 6. Previous transient ischemic attack. 7. Chronic left hemidiaphragm paralysis diagnosed in [address] Simms. 8. Osteopenia. DISCHARGE DIAGNOSIS: 1. Chronic obstructive pulmonary disease with exacerbation secondary to a viral pneumonitis due to influenza type B, slow to respond to aggressive treatment with bronchial hygiene, corticosteroids and antibiotic coverage, but on discharge returning to baseline levels. 2. Influenza, type B. 3. Diabetes mellitus, type 2, uncontrolled. 4. Hypertension. 5. Hyperlipidemia. 6. Chronic gout. 7. Previous transient ischemic attack. 8. Chronic left hemidiaphragm paralysis. 9. Osteopenia. REASON FOR HOSPITALIZATION: Mr. Urban is a 67 year-old male patient that presented to the Emergency Room from the clinic today secondary to severe hypoxia. The patient had been having upper respiratory symptoms over the last week. He initially had seen a provider at the mobile clinic from [place] and was treated with some antibiotics. He notes that his symptoms progressively worsened over the last week. Today in the clinic his saturations were ranging between 75 and 80% on room air and he is not O2 dependent. He does have a longstanding history of chronic obstructive pulmonary disease and has only been hospitalized within the last 2 years for an exacerbation related to his COPD. He noted that his cough was only very mildly productive but he was having significant shortness of breath with fevers. He denied any chest pains. He was having some general malaise. Initial vitals in the E. R. showed that he was afebrile with temperature 97.4 but he was satting 767% on room air with respirations 28, blood pressure 172/68, heart rate 78. After 2 breathing treatments and 4 liters nasal cannula he had only come up to 87%. After additional breathing treatments, he improved to the low 90s on 4 liters nasal cannula. His laboratory studies showed that he had a normal white count without a left shift. Chemistry showed a normal troponin at less than 0.02. Creatinine was elevated at 1.32. Carbon dioxide was low at 17, but anion gap normal at 16. Single view chest was completed and per radiology interpretation showed no pulmonary mass, pneumothorax or pleural effusions. No obvious consolidating infiltrative process. Once again is noted an elevated left hemidiaphragm. Microbiology did have a positive Influenza B by PCR. Given his worsening COPD exacerbation secondary to Influenza B and significant hypoxia on room air now requiring oxygen, the patient is going to be admitted for further treatment and evaluation. He was initially started on treatment with steroids and was found to be in stable condition at time of admission. LABORATORY: Initial white count was 5,300, at discharge was 7,700. Hemoglobin and hematocrit were stable and at discharge hemoglobin 11.8 and hematocrit 35.6, platelet count 210,000. Differential did show a left shift, but was resolving prior to discharge. Blood gas analysis on admission showed pH 7.5, pCO2 21, pO2 64, bicarb 14, base excess 7.4, O2 saturation 94.6% on room air at rest. ABGs after 30 minutes of BiPAP showed pH 7.41, pCO2 25, pO2 89, bicarb 15, saturation 98% on 30% FIO2. Chemistries initially on admission showed normal electrolytes with BUN 26, creatinine 1.32. Blood sugars were elevated due to high dose corticosteroids through admission. Prior to discharge, electrolytes had normalized with potassium 4.1, BUN down to 22, creatinine 0.9. Blood sugars were a little better controlled between 168 and 280. Magnesium 2.1 on discharge. Lactic acid initially on admission was 1.7. Liver enzymes on admission were within normal limits. Urinalysis showed a small amount of bilirubin, otherwise within normal limits. MICROBIOLOGY: Influenza type A and B by PCR was positive for influenza B. Blood cultures remained negative after 5 days. RADIOLOGY: Initial chest x-ray on admission per radiologic interpretation showed no acute process identified in the chest. He had several more additional x-rays. The last x-ray on 12/18/18 per radiologic interpretation showed heart size to be normal, emphysema re-demonstrated, no new consolidations. There was persistent scar in the lung base. This was compared to 12/13/18. Review of that x-ray on 12/13/18 per radiologic interpretation showed chronic obstructive pulmonary disease, no edema or pneumonia. HOSPITAL COURSE: Mr. Urban was admitted for chronic obstructive pulmonary disease exacerbation of 12/11/18. He was found to have influenza B upper respiratory viral infection resulting in a severe chronic obstructive pulmonary disease exacerbation. He was started on very aggressive bronchial hygiene along with corticosteroids. He required some noninvasive ventilatory support with BiPAP for several days and was able to titrate down to nasal cannula and was showing good clinical improvement. He continued antibiotic therapy and antiviral therapy along with high dose corticosteroids. Corticosteroids were tapered down to p.o. prednisone and on the morning of discharge, he was found to be clinically stable enough to continue with outpatient management. PLAN: Mr. Urban was discharged on 12/18/18 with instructions to followup with Dr. Nguyễn on 12/21/18 at 1400. He was to resume his home medications as instructed and he had home health arranged through [facility] [place]. He was told to return to the hospital should he have any worsening symptoms. Diet at discharge was diabetic diet. Activity to increase as tolerated. He was to wear oxygen /, which was arranged prior to discharge for both portable and home O2 with nasal cannula at 2 liters. He certainly was doing well with very aggressive pulmonary hygiene and would benefit from referral to pulmonary rehab at some point. He finished the course of antibiotics to include Rocephin and azithromycin. He was discharged to continue with Medrol Dosepak, breathing treatments and oxygen. CONDITION AT DISCHARGE: Stable and improving. DISPOSITION: The patient was discharged to care of family members. [facility][id number] [facility]
== END 2018-12-18 14:18 | disposition home health service (06) | DRG 190 ==
LOC: ER 11:01 → MS 13:04
PROVIDERS: ADMIT Family Medicine; ATTEND Nurse Practitioner Family
DX: J44.1 Chronic obstructive pulmonary disease with (acute) exacerbation (principal); J10.00 Influenza due to other identified influenza virus with unspecified type of pneumonia; R09.02 Hypoxemia; E11.65 Type 2 diabetes mellitus with hyperglycemia; F41.9 Anxiety disorder, unspecified; I10 Essential (primary) hypertension; E78.00 Pure hypercholesterolemia, unspecified; M1A.9XX0 Chronic gout, unspecified, without tophus (tophi); M85.80 Other specified disorders of bone density and structure, unspecified site; J98.6 Disorders of diaphragm; Z66 Do not resuscitate; Z86.73 Personal history of transient ischemic attack (TIA), and cerebral infarction without residual deficits; Z79.4 Long term (current) use of insulin; Z79.51 Long term (current) use of inhaled steroids; Z79.52 Long term (current) use of systemic steroids; Z79.82 Long term (current) use of aspirin; Z79.891 Long term (current) use of opiate analgesic; Z79.899 Other long term (current) drug therapy; Z87.891 Personal history of nicotine dependence

== ENCOUNTER → 2019-04-18 | Outpatient (CLI) | payer MEDICARE, OTHER | LOC: GMAM 10:33 | PROVIDERS: ATTEND Family Medicine | DX: E53.8 Deficiency of other specified B group vitamins (principal); I10 Essential (primary) hypertension; M10.9 Gout, unspecified; E11.9 Type 2 diabetes mellitus without complications; Z79.899 Other long term (current) drug therapy ==

== ENCOUNTER → 2019-04-30 | Outpatient (CLI) | payer MEDICARE, OTHER | LOC: SL 19:08 | PROVIDERS: ATTEND Family Medicine | DX: G47.10 Hypersomnia, unspecified (principal); R06.83 Snoring; I10 Essential (primary) hypertension; G25.81 Restless legs syndrome; E11.9 Type 2 diabetes mellitus without complications ==

== ENCOUNTER → 2019-05-27 | Outpatient (CLI) | payer MEDICARE, OTHER | LOC: SL 19:28 | PROVIDERS: ATTEND Family Medicine | DX: G47.10 Hypersomnia, unspecified (principal); R06.83 Snoring; G25.81 Restless legs syndrome; I10 Essential (primary) hypertension; E11.9 Type 2 diabetes mellitus without complications ==

== ENCOUNTER → 2019-06-12 | Outpatient (CLI) | payer MEDICARE, OTHER ==
--- NOTE | 2019-06-12 11:56 | MRI ---
EXAM DESCRIPTION: Lumbar Spine w/o Contrast : Magnetic Resonance Imaging. CLINICAL HISTORY: LUMBAR RADICULOPATHY COMPARISON: None. TECHNIQUE: Multiplanar, multiple standard sequences, non contrast MRI, lumbar spine. FINDINGS: L5-S1: The disc is well visualized on axial T2 series 501, image 3. L5-S1: Minimal disc desiccation. Bilateral shortened pedicles. In the posterior elements unremarkable. Moderate canal narrowing. Bilateral foramina are patent. L4-L5: Disc desiccation and disc space loss. Anterior and posterior bulging. Posterior elements are unremarkable. AP canal diameter 12 mm. Bilateral disc bulge into the foramina with mild to moderate narrowing. L3-L4: Disc desiccation with disc space maintained. No significant bulging. Hypertrophic facet arthrosis and flavum ligament thickening posterior. AP canal diameter 12 mm. Mild left foraminal narrowing and moderate right foraminal narrowing possibly due to disc bulging. L2-L3: Disc desiccation with disc space preserved. Tiny posterior bulge. AP canal diameter 14 mm. Bilateral foramina are patent. L1-L2: Disc space maintained with no significant desiccation or bulging. Posterior elements unremarkable. Canal and foramina are patent. T12-L1: No disc desiccation and disc space maintained. Posterior elements unremarkable. Canal and foramina are patent. Conus terminates at this level. T11-T12 disc space maintained with normal signal in the disc. No canal or foraminal narrowing. No significant scoliosis. Lordosis is exaggerated. Paravertebral soft tissues unremarkable. Distal cord normal signal and caliber. Normal marrow signal in the remaining vertebral bodies and the posterior elements. Vertebral bodies are not compressed at any level. IMPRESSION: 1. Multiple levels of the desiccated discs with some bulging and disc space loss. No canal or foraminal stenosis at any level. Hypertrophic facet arthrosis at several levels predominantly at L3-L4. Electronically signed by: Kedar Grigsby MD 06/12/2019 11:55 AM CDT
== END ==
LOC: MRI 07:00
PROVIDERS: ATTEND Psychiatry & Neurology Neurology
DX: M51.16 Intervertebral disc disorders with radiculopathy, lumbar region (principal); M47.26 Other spondylosis with radiculopathy, lumbar region

== ENCOUNTER → 2019-08-20 | Outpatient (CLI) | payer MEDICARE, OTHER | LOC: GMAM 10:33 | PROVIDERS: ATTEND Family Medicine | DX: E53.8 Deficiency of other specified B group vitamins (principal); N40.0 Benign prostatic hyperplasia without lower urinary tract symptoms; I10 Essential (primary) hypertension; E11.9 Type 2 diabetes mellitus without complications; E78.2 Mixed hyperlipidemia; M10.9 Gout, unspecified ==

== ENCOUNTER → 2019-11-20 | Outpatient (CLI) | payer MEDICARE, OTHER | LOC: GMAM 11:06 | PROVIDERS: ATTEND Family Medicine | DX: E53.8 Deficiency of other specified B group vitamins (principal); I10 Essential (primary) hypertension; E11.9 Type 2 diabetes mellitus without complications; E78.2 Mixed hyperlipidemia; M10.9 Gout, unspecified ==

== ENCOUNTER 2020-02-25 14:56 | Inpatient (IN) | payer MEDICARE, OTHER ==
--- NOTE | 2020-02-25 15:43 | RAD ---
EXAM DESCRIPTION: Chest,1 View CLINICAL HISTORY: sob, hx copd COMPARISON: Chest x-ray December 18, 2018. CT of the thorax September 08, 2017. FINDINGS: 1 view chest portable technique. Chronic elevation of the left hemidiaphragm suggesting a degree of diaphragmatic dysfunction/paralysis. There is chronic atelectasis and/or scarring with bronchiectasis in the lung bases not dissimilar to several comparison studies. No acute airspace opacity is demonstrated. No pneumothorax. The heart size is normal. No aggressive bony lesions. IMPRESSION: No acute processes demonstrated. Chronic findings described above. Electronically signed by: Mayo Moctezuma MD 02/25/2020 3:42 PM CDT
[2020-02-25] MEDS ORDERED: AZITHROMYCIN IV 500 MG in SODIUM CHLORIDE 0.9% 250ML 250 ML IVPB ONE (16:17)
[2020-02-25] MEDS ORDERED: DEXAMETHASONE INJ 4 MG/ML VIAL IV ONE (16:18)
[2020-02-25] MEDS ORDERED: IPRATROPIUM/ALBUTEROL 3 ML VIAL NEB ONE (16:55)
--- NOTE | 2020-02-25 17:05 | ED.PDOC ---
History of Present Illness - General Chief Complaint: Respiratory Problem Stated Complaint: COPD exacerbation Time Seen by Provider: 02/25/20 15:14 Source: patient Exam Limitations: no limitations - History of Present Illness Initial Comments: The patient is a 69-year-old male sent over from clinic secondary to progressive shortness of breath and hypoxia over the last week. The patient is not feeling bad, just more short of breath than normal. He does have longstanding COPD and does normally wear oxygen at home. However in spite of maximal flow from his unit at home, he has been unable to maintain saturations greater than 88%. He does increase in his sputum production. No sore throat. No runny nose. No body aches. No nausea vomiting or diarrhea. No syncope. No chest pain. No new edema. Timing/Duration: other - 6 days Severity: moderate Improving Factors: nothing Worsening Factors: nothing Associated Symptoms: cough, malaise, shortness of breath Allergies/Adverse Reactions: Allergies NO KNOWN ALLERGY Allergy (Verified 06/28/17 10:36) Home Medications: Ambulatory Orders Aspirin [Baby Aspirin] 81 mg PO QD 04/29/15 Febuxostat [Uloric] 40 mg PO 1700 04/29/15 Metoprolol Succinate [Metoprolol Succinate ER] 50 mg PO DAILY 04/29/15 Talent-3 Fatty Acids [Fish Oil 1000 mg] 1 cap PO BID 04/29/15 Tramadol HCl 50 - 100 mg PO Q6-8H PRN 04/29/15 Trandolapril 2 mg PO DAILY 04/29/15 Verapamil HCl [Verapamil HCl Sr] 120 mg PO DAILY 04/29/15 predniSONE 5 mg PO DAILY 04/29/15 Budesonide-Formoterol Fumarate [Symbicort 160-4.5 Mcg/Act] 1 each IN BID 06/01/17 HYDROcodone 10MG/APAP 325MG [[place] 10/325] 1 - 2 ea PO Q4H PRN 06/01/17 Sitagliptin-Metformin HCl [Janumet 50-1000 mg] 1 tab PO BID 06/01/17 Calcium Citrate-Vitamin D [Calcium Citrate + D3 Maxi 315-250 mg-Unit] 1 tab PO BID 06/28/17 Dulaglutide [Trulicity] 0.75 mg SC WKLY 06/28/17 Furosemide [Lasix] 20 mg PO DAILY PRN 06/28/17 Potassium Chloride [Micro-K] 8 meq PO DAILY PRN 06/28/17 Umeclidinium [place] [Incruse Ellipta] 62.5 mcg IN DAILY PRN 06/28/17 Insulin Glargine [Toujeo Solostar] 14 units SUBCU DAILY 12/11/18 Melatonin 6 mg PO BEDTIME 12/11/18 Methylprednisolone [Medrol Dose Hiren] 4 mg PO DAILY 6 Days #21 tab 12/18/18 Review of Systems - Review of Systems Constitutional: States: malaise EENTM: States: no symptoms reported Respiratory: States: cough, short of breath Cardiology: States: no symptoms reported Gastrointestinal/Abdominal: States: no symptoms reported Genitourinary: States: no symptoms reported Musculoskeletal: States: no symptoms reported Skin: States: no symptoms reported Neurological: States: no symptoms reported Endocrine: States: no symptoms reported All other Systems: No Change from Baseline Past Medical History (General) - Patient Medical History Hx Seizures: No Hx Stroke: Yes - TIA's x7 Hx Asthma: No Hx of COPD: Yes - acute exaceberation Hx Congestive Heart Failure: No Hx Pacemaker: No Hx Hypertension: Yes Hx Diabetes: Yes - DM 2, insulin & PO controlled Hx MRSA: No Surgical History: no surgical history - Vaccination History Hx Influenza Vaccination: Yes - 2016 Hx Pneumococcal Vaccination: Yes - unknown date - Social History Hx Tobacco Use: Yes Hx Alcohol Use: No Hx Substance Use: No Hx Physical Abuse: No Hx Emotional Abuse: No - Activities of Daily Living Hospice Agency (if applicable):: None - Female History Patient is a Female of Child Bearing Age (10 -59 yrs old): No Family Medical History - Family History Mother Name: Karlie Urban Living Status: Age at (years of age): 78 Cause of : Old Age Hx Family Asthma: No Hx Family Congestive Heart Failure: No Hx Family Hypertension: Yes Age of Onset (years of age): unk Hx Family Stroke: No Hx Cardiac Disease: No Hx Family Diabetes: No Hx Family Cancer: No Hx Family;Other: Mother had long Hx of ETOH abuse and nictione use for 50 years. Father Name: Aly Urban Living Status: Age at (years of age): 82 Cause of : Cancer of Liver with met. Hx Family Asthma: No Hx Family Congestive Heart Failure: No Hx Family Hypertension: No Hx Family Stroke: No Hx Cardiac Disease: No Hx Family Diabetes: No Hx Family Cancer: Yes Age of Onset (years of age): unk Hx Family;Other: Father has long Hx of ETOH and Nictione Use for 30 years. At age 50 -- quit smoking and drinking. Physical Exam - Physical Exam General Appearance: Alert, No apparent distress Eye Exam: bilateral normal Ears, Nose, Throat: hearing grossly normal, normal pharynx Neck: full range of motion, supple Respiratory: no respiratory distress, no accessory muscle use, rales - Scattered Cardiovascular/Chest: normal peripheral pulses, no edema, other - Regular rate and rhythm. Peripheral Pulses: radial,right: 2+, radial,left: 2+ Gastrointestinal/Abdominal: non tender, soft Rectal Exam: deferred Extremity: normal range of motion - Given chronic limitations, no pedal edema, no calf tenderness, normal capillary refill Neurologic: docking pilot II-XII nml as tested, alert, normal mood/affect, oriented x 3 Skin Exam: normal color Comments: Vital Signs - 24 hr 02/25/20 02/25/20 02/25/20 15:14 15:15 15:38 Temperature 100.7 F H Pulse Rate [ 82 82 brachial] Respiratory 22 22 Rate Blood Pressure 169/69 [Right Arm] O2 Sat by Pulse 90 L 93 L Oximetry Progress - Progress Progress: 02/25/20 17:07 The patient is a 69-year-old male with a longstanding history of COPD presenting secondary to progressive shortness of breath. The patient has been unable to maintain adequate oxygenation on maximum flow with his oxygen at home. Patient does appear to be having a mild COPD exacerbation giving the hypoxia due to a current coronavirus infection. The patient is being dosed with dexamethasone and has received a dose of azithromycin. He is currently requiring 5 L nasal cannula oxygen to maintain oxygen saturations around 90%. He is receiving a couple of breathing treatments. The patient will be admitted for continued treatment and monitoring. He is obviously a very high risk patient for deterioration with this disease. scott villegas [phone] - Results/Orders Results/Orders: Laboratory Tests 02/25/20 02/25/20 02/25/20 15:14 15:40 15:40 WBC 5.3 RBC 4.70 Hgb 13.2 L Hct 39.2 L MCV 83.4 MCH 28.0 MCHC 33.6 RDW 16.1 H Plt Count 175 MPV 7.2 L Absolute Neuts (auto) 3.90 Absolute Lymphs (auto) 1.00 Absolute Monos (auto) 0.30 Absolute Eos (auto) 0.00 Absolute Basos (auto) 0.00 Neutrophils % 73.8 Lymphocytes % 19.4 L Monocytes % 6.2 Eosinophils % 0.3 L Basophils % 0.3 PT INR PTT (SP) D-Dimer, Quantitative Sodium 137 Potassium 3.6 Chloride 104 Carbon Dioxide 21 Anion Gap 15.6 BUN 13 Creatinine 1.33 H BUN/Creatinine Ratio 9.8 L POC Glucose 181 H Random Glucose 181 H Serum Osmolality 278.5 Calcium 9.2 Total Bilirubin 1.0 AST 24 ALT 18 Alkaline Phosphatase 62 Creatine Kinase 35 L CK-MB (CK-2) 1.9 CK-MB (CK-2) % Not Reportable Troponin I < 0.02 B-Natriuretic Peptide 36.2 Serum Total Protein 7.3 Albumin 3.9 Globulin 3.4 Albumin/Globulin Ratio 1.1 02/25/20 15:40 WBC RBC Hgb Hct MCV MCH MCHC RDW Plt Count MPV Absolute Neuts (auto) Absolute Lymphs (auto) Absolute Monos (auto) Absolute Eos (auto) Absolute Basos (auto) Neutrophils % Lymphocytes % Monocytes % Eosinophils % Basophils % PT 10.2 INR 1.03 PTT (SP) 30.3 D-Dimer, Quantitative 687.0 H* Sodium Potassium Chloride Carbon Dioxide Anion Gap BUN Creatinine BUN/Creatinine Ratio POC Glucose Random Glucose Serum Osmolality Calcium Total Bilirubin AST ALT Alkaline Phosphatase Creatine Kinase CK-MB (CK-2) CK-MB (CK-2) % Troponin I B-Natriuretic Peptide Serum Total Protein Albumin Globulin Albumin/Globulin Ratio Chest x-ray shows chronic COPD changes. EKG shows normal sinus rhythm at 78 bpm. Mild right axis deviation. Borderline R wave progression. No ST segment or T wave changes indicative of acute ischemia. Normal QT interval. Coronavirus test from [facility] is positive. Rapid flu was negative. Departure - Departure Clinical Impression: Acute exacerbation of chronic obstructive pulmonary disease (COPD), COVID-19, Hypoxia Disposition: Admit Patient Condition: Poor Departure Forms: ED Discharge - Pt. Copy, Patient Portal Self Enrollment Referrals: Ben Villegas MD [Primary Care Provider] - 1-2 Weeks Home Medications: Ambulatory Orders Aspirin [Baby Aspirin] 81 mg PO QD 04/29/15 Febuxostat [Uloric] 40 mg PO 1700 04/29/15 Metoprolol Succinate [Metoprolol Succinate ER] 50 mg PO DAILY 04/29/15 Talent-3 Fatty Acids [Fish Oil 1000 mg] 1 cap PO BID 04/29/15 Tramadol HCl 50 - 100 mg PO Q6-8H PRN 04/29/15 Trandolapril 2 mg PO DAILY 04/29/15 Verapamil HCl [Verapamil HCl Sr] 120 mg PO DAILY 04/29/15 predniSONE 5 mg PO DAILY 04/29/15 Budesonide-Formoterol Fumarate [Symbicort 160-4.5 Mcg/Act] 1 each IN BID 06/01/17 HYDROcodone 10MG/APAP 325MG [[place] ] 1 - 2 ea PO Q4H PRN 06/01/17 Sitagliptin-Metformin HCl [Janumet 50-1000 mg] 1 tab PO BID 06/01/17 Calcium Citrate-Vitamin D [Calcium Citrate + D3 Maxi 315-250 mg-Unit] 1 tab PO BID 06/28/17 Dulaglutide [Trulicity] 0.75 mg SC WKLY 06/28/17 Furosemide [Lasix] 20 mg PO DAILY PRN 06/28/17 Potassium Chloride [Micro-K] 8 meq PO DAILY PRN 06/28/17 Umeclidinium [place] [Incruse Ellipta] 62.5 mcg IN DAILY PRN 06/28/17 Insulin Glargine [Toujeo Solostar] 14 units SUBCU DAILY 12/11/18 Melatonin 6 mg PO BEDTIME 12/11/18 Methylprednisolone [Medrol Dose Hiren] 4 mg PO DAILY 6 Days #21 tab 12/18/18 Decision To Admit - Decistion To Admit Decision to Admit Reason: Medical Nature Decision to Admit Date: 02/25/20 Decision to Admit Time: 17:10
[2020-02-25] MEDS ORDERED: KCL 20MEQ/0.45% NS 1,000 ML IVS PRN (18:11)
--- NOTE | 2020-02-25 19:19 | CT ---
EXAM: Chest w/o Contrast HISTORY: COVID Pneumonitis COMPARISON: February 25, 2020. September 08 2017. TECHNIQUE: Contiguous axial images of the chest were obtained from the thoracic inlet to the upper abdomen without intravenous contrast followed by multiplanar reformats. This exam was performed according to our departmental dose-optimization program, which includes automated exposure control, adjustment of the mA and/or kV according to patient size and/or use of iterative reconstruction technique. FINDINGS: Bibasilar lower lobe dependent airspace consolidations with air bronchograms and bronchiectasis. No discernible groundglass opacities. No pneumothorax or pleural effusion. Heart size normal. No pericardial effusion. No mediastinal adenopathy. The central airways are patent. Great vessels are normal. Limited visualization of upper abdominal contents is unremarkable for an acute process. No destructive osseous lesion. IMPRESSION: Bibasilar dependent lower lobe airspace consolidations, air bronchograms and bronchiectasis. Appearance is not typical of COVID, but more often seen in the setting of aspiration. No discrete nodular/groundglass opacities detected.These findings are likely superimposed on probable scarring which was present on September 08, 2017. Electronically signed by: Alvaro Farfan MD 02/25/2020 7:17 PM CDT
[2020-02-25] MEDS: cefTRIAXone SODIUM 1 GM in SODIUM CHL 0.9% 50ML MIN-BAG+ 50 ML IVPB SCH (19:20)
[2020-02-25] MEDS ORDERED: cefTRIAXone SODIUM 1 GM VIAL ONE (19:23)
[2020-02-25] MEDS ORDERED: SODIUM CHL 0.9% 50ML MIN-BAG+ 50 ML IVPB ONE (19:24)
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
[2020-02-25] MEDS ORDERED: METOPROLOL SUCCINATE XL 50 MG TAB PO ONE (19:42)
[2020-02-25] MEDS ORDERED: traMADol HCL 50 MG TAB PO ONE (19:43)
[2020-02-25] MEDS ORDERED: KCL 20MEQ/0.45% NS 1,000 ML IVS ONE (21:09)
[2020-02-25] MEDS: ENOXAPARIN SODIUM 40 MG/0.4 ML SYG SUBCU SCH (21:10)
[2020-02-25] MEDS: ALBUTEROL SULFATE 2.5 MG/3 ML VIAL NEB SCH (22:30)
[2020-02-25] MEDS ORDERED: HYDROcodone 10MG/APAP 325MG 1 EA TAB PO ONE (22:41)
[2020-02-25] MEDS ORDERED: FLUCONAZOLE 150 MG TAB PO ONE (23:17)
--- NOTE | 2020-02-26 07:12 | RAD ---
EXAM DESCRIPTION: XR Chest, one view CLINICAL HISTORY: COVID pneumonitis. COMPARISON: December 13, 2018 FINDINGS: The heart is normal in size. The pulmonary vascularity is normal. The lungs are hyperinflated. Nonspecific increased interstitial markings are seen in the lung bases. Blunting of the left costophrenic angle is seen.. The osseous structures appear unremarkable. IMPRESSION: No interval change. Electronically signed by: Sarah Beth Muller MD 02/26/2020 7:10 AM CDT
[2020-02-26] MEDS: INSULIN LISPRO 100 UNITS/ML PEN SUBCU SCH ×4 (07:32→20:44)
--- NOTE | 2020-02-26 08:33 | PN ---
DATE: 02/26/20 SUBJECTIVE: The patient is feeling a little bit better today, breathing somewhat easier than yesterday although still short of breath. He denies any chest pain, nausea, vomiting or diarrhea. OBJECTIVE: VITAL SIGNS: Temperature 97.8, pulse 77, respiratory rate 16, blood pressure 161/73, oxygen saturation 93% on 3 liters. HEENT: Unremarkable. CHEST: Somewhat diminished throughout with some bilateral wheezing, but improved from yesterday. HEART: Regular rate and rhythm. ABDOMEN: Benign. EXTREMITIES: No edema. LABORATORY: White blood cell count 3.8, hemoglobin 12.4, hematocrit 37, platelet count 175. Lymphocyte percent is 9.2, this is from 19.4 last night. Absolute lymphocytes also down to 0.4. D-dimer is down from 687 yesterday to 414 today. C-reactive protein 10.5 last night and not repeated this morning. CT scan of the chest was reviewed from last night. It did show bilateral dependent lobe airspace consolidation, air bronchograms and bronchiectasis. It did not show any nodular ground glass opacities. ASSESSMENT: 1. COVID-19 pneumonitis. 2. Chronic obstructive pulmonary disease with exacerbation. 3. Hypertension. 4. Type 2 diabetes mellitus. 5. Hyperlipidemia. PLAN: We will continue with COVID-19 protocol. I will hold off his IV fluids today, continue oxygen and dexamethasone 6 mg IV daily. Continue Lovenox. We will recheck labs in the morning. #[id number] [facility]
[2020-02-26] MEDS ORDERED: traMADol HCL 50 MG TAB PO PRN (08:52)
[2020-02-26] MEDS ORDERED: NON-FORMULARY MEDICATION 1 EA MIS (Dulaglutide [Trulicity] 0.75 MG) SC SCH (09:00)
[2020-02-26] MEDS ORDERED: DEXTROSE 50% 25 GM/50 ML SYG IV PRN (09:20)
[2020-02-26] MEDS ORDERED: GLUCAGON INJ 1 MG VIAL SUBCU PRN (09:20)
[2020-02-26] MEDS: BUDESONIDE/FORMOTEROL 160/4.5 60 PUFF/6 GM INH INH SCH ×2 (09:27→21:30)
[2020-02-26] MEDS: AZITHROMYCIN IV 500 MG in SODIUM CHLORIDE 0.9% 250ML 250 ML IVPB SCH ×2 (10:15→18:11)
[2020-02-26] MEDS: FISH OIL 1,200 MG CAP PO SCH ×2 (10:16→19:50)
[2020-02-26] MEDS: VERAPAMIL ER 120 MG TAB PO SCH (10:16)
[2020-02-26] MEDS: SITagliptin 50 MG TAB PO SCH ×2 (10:16→17:27)
[2020-02-26] MEDS: metFORMIN HCL 500 MG TAB PO SCH ×2 (10:16→17:27)
[2020-02-26] MEDS: ENOXAPARIN SODIUM 40 MG/0.4 ML SYG SUBCU SCH ×2 (10:16→19:50)
[2020-02-26] MEDS: ASPIRIN (CHEWABLE) 81 MG TAB PO SCH (10:16)
[2020-02-26] MEDS: CALCIUM CARBONATE-VITAMIN D 500 MG TAB PO SCH ×2 (10:16→19:50)
[2020-02-26] MEDS: INSULIN GLARGINE 14 UNIT SUBCU SCH (10:16)
[2020-02-26] MEDS: LISINOPRIL 10 MG TAB PO SCH (10:16)
[2020-02-26] MEDS: DEXAMETHASONE INJ 10 MG/ML VIAL IV SCH (10:17)
[2020-02-26] MEDS: ALBUTEROL SULFATE 2.5 MG/3 ML VIAL NEB SCH ×4 (10:25→21:30)
[2020-02-26] MEDS: HYDROcodone 10MG/APAP 325MG 1 EA TAB PO PRN ×2 (13:08→19:47)
[2020-02-26] MEDS: METOPROLOL SUCCINATE XL 50 MG TAB PO SCH (17:27)
[2020-02-26] MEDS: cefTRIAXone SODIUM 1 GM in SODIUM CHL 0.9% 50ML MIN-BAG+ 50 ML IVPB SCH (17:27)
[2020-02-26] MEDS ORDERED: LIDOCAINE VISCOUS 2% 15 ML, diphenhydrAMINE HCL 37.5 MG, NYSTATIN SUSPENSION 15 ML, ALU... PO ONE ×4 (17:48)
[2020-02-26] MEDS ORDERED: diphenhydrAMINE HCL 12.5 MG/5 ML UD ONE (18:07)
[2020-02-26] MEDS ORDERED: LIDOCAINE HCL 2% (MOUTH-THROAT) 15 ML UD ONE (18:08)
[2020-02-26] MEDS ORDERED: ALUMINUM & MAGNESIUM HYDROXIDE 30 ML UD ONE (18:08)
[2020-02-26] MEDS ORDERED: MELATONIN 3 MG TAB ONE (19:41)
[2020-02-26] MEDS: NYSTATIN SUSPENSION 500,000/5 ML UD MT SCH (19:47)
[2020-02-26] MEDS: MELATONIN 3 MG TAB PO SCH (19:50)
[2020-02-26] MEDS ORDERED: NON-FORMULARY MEDICATION 1 EA MIS SUBCU ONE (20:57)
[2020-02-26] MEDS ORDERED: MELATONIN 3 MG TAB PO SCH (21:00)
--- NOTE | 2020-02-27 07:09 | RAD ---
EXAMINATION: Chest x-ray one view. INDICATION: Covid pneumonitis COMPARISON: 02/26/2020 TECHNIQUE: Frontal radiograph chest. FINDINGS: The cardiac silhouette is normal in size. Calcifications within the aorta. Minimal bibasilar airspace opacities are present, slightly worse on the left. There is also blunting of the left costophrenic angle. There is no pneumothorax. IMPRESSION: Persistent bibasilar airspace opacities, worse on the left. No significant interval change when compared to prior Electronically signed by: Sahara Knott MD 02/27/2020 7:07 AM CDT
[2020-02-27] MEDS: INSULIN LISPRO 100 UNITS/ML PEN SUBCU SCH ×4 (07:30→21:50)
[2020-02-27] MEDS ORDERED: SODIUM CHLORIDE 0.9% (FLUSH) 10 ML SYG ONE (07:30)
[2020-02-27] MEDS: metFORMIN HCL 500 MG TAB PO SCH ×2 (07:42→17:35)
[2020-02-27] MEDS: SITagliptin 50 MG TAB PO SCH ×2 (07:42→17:35)
[2020-02-27] MEDS: BUDESONIDE/FORMOTEROL 160/4.5 60 PUFF/6 GM INH INH SCH ×2 (08:34→20:00)
[2020-02-27] MEDS: ALBUTEROL SULFATE 2.5 MG/3 ML VIAL NEB SCH ×4 (08:34→20:00)
[2020-02-27] MEDS: VERAPAMIL ER 120 MG TAB PO SCH (08:57)
[2020-02-27] MEDS: LISINOPRIL 10 MG TAB PO SCH (08:57)
[2020-02-27] MEDS: DEXAMETHASONE INJ 10 MG/ML VIAL IV SCH (08:57)
[2020-02-27] MEDS: FISH OIL 1,200 MG CAP PO SCH ×2 (08:57→20:44)
[2020-02-27] MEDS: ENOXAPARIN SODIUM 40 MG/0.4 ML SYG SUBCU SCH ×2 (08:58→20:44)
[2020-02-27] MEDS: ASPIRIN (CHEWABLE) 81 MG TAB PO SCH (08:58)
[2020-02-27] MEDS: CALCIUM CARBONATE-VITAMIN D 500 MG TAB PO SCH ×2 (08:58→20:44)
[2020-02-27] MEDS: NYSTATIN SUSPENSION 500,000/5 ML UD MT SCH ×4 (08:59→20:44)
[2020-02-27] MEDS: INSULIN GLARGINE 14 UNIT SUBCU SCH (09:01)
[2020-02-27] MEDS: HYDROcodone 10MG/APAP 325MG 1 EA TAB PO PRN ×2 (15:05→20:44)
[2020-02-27] MEDS: cefTRIAXone SODIUM 1 GM in SODIUM CHL 0.9% 50ML MIN-BAG+ 50 ML IVPB SCH (17:32)
[2020-02-27] MEDS: METOPROLOL SUCCINATE XL 50 MG TAB PO SCH (17:35)
[2020-02-27] MEDS: AZITHROMYCIN IV 500 MG in SODIUM CHLORIDE 0.9% 250ML 250 ML IVPB SCH (18:08)
[2020-02-27] MEDS ORDERED: ALBUTEROL SULFATE 2.5 MG/3 ML VIAL NEB PRN (19:35)
[2020-02-27] MEDS: BIFIDOBACTERIUM INFANTIS 4 MG CAP PO SCH (20:44)
[2020-02-27] MEDS: MELATONIN 3 MG TAB PO SCH (20:44)
[2020-02-27] MEDS: ALUMINUM & MAGNESIUM HYDROXIDE 30 ML UD PO PRN (20:46)
[2020-02-28] MEDS ORDERED: ENOXAPARIN SODIUM 40 MG/0.4 ML SYG SUBCU ONE (05:19)
[2020-02-28] MEDS: ALUMINUM & MAGNESIUM HYDROXIDE 30 ML UD PO PRN (05:59)
[2020-02-28] MEDS: PANTOPRAZOLE SODIUM IV 40 MG VIAL IV SCH (05:59)
--- NOTE | 2020-02-28 07:11 | RAD ---
EXAMINATION: Chest x-ray one view. INDICATION: Covid pneumonia COMPARISON: 02/27/2020 TECHNIQUE: Frontal radiograph chest. FINDINGS: The cardiac silhouette is enlarged and stable Some minimal patchy airspace opacities persist at the left lung base. These are however improved from prior. There is no pneumothorax. IMPRESSION: Minimal patchy airspace opacities persist at the left lung base. These are however improved from prior. Electronically signed by: Sahara Knott MD 02/28/2020 7:10 AM CDT
[2020-02-28] MEDS: SITagliptin 50 MG TAB PO SCH ×2 (07:44→17:44)
[2020-02-28] MEDS: metFORMIN HCL 500 MG TAB PO SCH ×2 (07:44→17:44)
[2020-02-28] MEDS: INSULIN LISPRO 100 UNITS/ML PEN SUBCU SCH ×4 (08:00→21:19)
--- NOTE | 2020-02-28 08:01 | PN ---
SUPERVISING PHYSICIAN: Joao Wyatt MD DATE: 02/27/20 SUBJECTIVE: The patient is sitting up in his bed. He continues complaints of shortness of breath, but it continues to improve daily. He denies nausea, vomiting or chest pain. OBJECTIVE: VITAL SIGNS: Temperature 97.2, heart rate 76, blood pressure 150/75, respiratory rate 18, O2 saturation 94% on 3 liters nasal cannula. RESPIRATORY: Diminished breath sounds throughout. CARDIAC: Regular rate and rhythm. GASTROINTESTINAL: Abdomen is soft, nondistended, nontender. Bowel sounds are positive. NEUROLOGIC: Awake, alert and oriented times three. LABORATORY: WBCs 6,700, hemoglobin 11.2, hematocrit 34. He does have a left shift on his differential. Lymphocytes are 6.6%. D-dimer is normalized at 211. Fibrinogen is elevated at 497. Electrolytes are basically within normal limits. Magnesium has improved to 1.8. C-reactive protein 4.4, serum total protein 6.1. Troponin less than 0.02. MICROBIOLOGY: Preliminary blood cultures show no growth. RADIOLOGY: Chest x-ray shows persistent bibasilar airspace opacities, worse on the left. No significant interval change when compared to prior. All other labs and films have been reviewed via the EMR. ASSESSMENT: 1. COVID-19 pneumonitis. 2. Chronic obstructive pulmonary disease with exacerbation. 3. Hypertension. 4. Type 2 diabetes mellitus. 5. Hyperlipidemia. PLAN: We will continue present supportive care and continue with the COVID-19 protocol. He will continue with dexamethasone and Lovenox as well as his present antibiotic therapy. We will continue aggressive pulmonary hygiene. Hopefully he can be discharged home in the next one to two days with close followup. I have ordered lab for in the morning. We will continue to monitor the patient closely and follow as needed. [facility][id number] [facility]
[2020-02-28] MEDS: ALBUTEROL SULFATE 2.5 MG/3 ML VIAL NEB SCH ×4 (08:50→20:20)
[2020-02-28] MEDS: NYSTATIN SUSPENSION 500,000/5 ML UD MT SCH ×4 (08:53→20:59)
[2020-02-28] MEDS: BIFIDOBACTERIUM INFANTIS 4 MG CAP PO SCH ×2 (08:53→20:59)
[2020-02-28] MEDS: VERAPAMIL ER 120 MG TAB PO SCH (08:53)
[2020-02-28] MEDS: FISH OIL 1,200 MG CAP PO SCH ×2 (08:54→20:59)
[2020-02-28] MEDS: ENOXAPARIN SODIUM 40 MG/0.4 ML SYG SUBCU SCH ×2 (08:54→21:00)
[2020-02-28] MEDS: ASPIRIN (CHEWABLE) 81 MG TAB PO SCH (08:54)
[2020-02-28] MEDS: CALCIUM CARBONATE-VITAMIN D 500 MG TAB PO SCH ×2 (08:54→20:59)
[2020-02-28] MEDS: LISINOPRIL 10 MG TAB PO SCH (08:54)
[2020-02-28] MEDS: DEXAMETHASONE INJ 10 MG/ML VIAL IV SCH (08:54)
[2020-02-28] MEDS: INSULIN GLARGINE 14 UNIT SUBCU SCH (08:56)
[2020-02-28] MEDS: BUDESONIDE/FORMOTEROL 160/4.5 60 PUFF/6 GM INH INH SCH ×2 (09:45→20:20)
[2020-02-28] MEDS ORDERED: SODIUM BICARBONATE SYRINGE 75 MEQ in DEXTROSE 5% 1000ML 1,000 ML IV ONE (10:00)
[2020-02-28] MEDS ORDERED: SODIUM BICARBONATE VIAL 50 MEQ/50 ML VIAL ONE (10:08)
[2020-02-28] MEDS ORDERED: DEXTROSE 5% 1000ML 1,000 ML IVS ONE (10:09)
[2020-02-28] MEDS: ACETAMINOPHEN 325 MG TAB PO PRN (10:19)
[2020-02-28] MEDS: HYDROcodone 10MG/APAP 325MG 1 EA TAB PO PRN ×2 (14:41→21:00)
[2020-02-28] MEDS: cefTRIAXone SODIUM 1 GM in SODIUM CHL 0.9% 50ML MIN-BAG+ 50 ML IVPB SCH (17:44)
[2020-02-28] MEDS: METOPROLOL SUCCINATE XL 50 MG TAB PO SCH (17:46)
--- NOTE | 2020-02-28 18:43 | PN ---
SUPERVISING PHYSICIAN: Joao Wyatt M.D. DATE: 02/28/20 SUBJECTIVE: The patient is lying in bed. He has been quite short of breath today, although he said it is better than yesterday. He does wear oxygen at home but he feels like he is requiring more than normal. He denies any chest pain, nausea or vomiting. He also had a headache earlier that he received Tylenol and that helped. OBJECTIVE: VITAL SIGNS: Temperature 97.6, heart rate 81, blood pressure 135/76, respiratory rate 18 at rest, with exertion it goes up to about 24. O2 saturation is 94% on 3 liters nasal cannula. RESPIRATORY: Diminished breath sounds throughout with some scattered rhonchi. No rales or wheezing noted. CARDIAC: Regular rate and rhythm. NEUROLOGIC: He is awake, alert and oriented times three. LABORATORY: WBCs are 10,900 with hemoglobin 11.3, hematocrit 34.1., lymphocytes are 3%. He has a left shift on his differential. Fibrinogen is 484 and D-dimer is 131. Electrolytes are basically within normal limits, but his carbon dioxide did go down to 18. Creatinine slightly worsened to 1.45. Calcium is 8.3 and C reactive protein is 2. Preliminary blood cultures show no growth after 3 days. Chest x-ray shows minimal patchy airspace opacities persistent at the left lung base, however they are improved from prior. All other labs and films have been reviewed via the EMR. ASSESSMENT: 1. COVID-19 pneumonitis. 2. Chronic obstructive pulmonary disease with exacerbation. 3. Hypertension. 4. Type 2 diabetes mellitus. 5. Hyperlipidemia. PLAN: We will continue present supportive care, including monitoring his cultures and repeating his labs tomorrow. Will hold on a chest x-ray. Will continue with his azithromycin and Rocephin as well as his Lovenox and his Decadron. May need to call Dr. Siddiqui tomorrow in regard to his increased renal function, but will continue to monitor him closely and follow as needed. #[id number] [facility]
[2020-02-28] MEDS: AZITHROMYCIN IV 500 MG in SODIUM CHLORIDE 0.9% 250ML 250 ML IVPB SCH (20:14)
[2020-02-28] MEDS: MELATONIN 3 MG TAB PO SCH (20:59)
[2020-02-29] MEDS: PANTOPRAZOLE SODIUM IV 40 MG VIAL IV SCH (06:09)
[2020-02-29] MEDS: INSULIN LISPRO 100 UNITS/ML PEN SUBCU SCH ×4 (07:30→22:13)
[2020-02-29] MEDS: metFORMIN HCL 500 MG TAB PO SCH ×2 (07:56→16:55)
[2020-02-29] MEDS: SITagliptin 50 MG TAB PO SCH ×2 (07:56→16:56)
[2020-02-29] MEDS: NYSTATIN SUSPENSION 500,000/5 ML UD MT SCH ×4 (08:55→22:03)
[2020-02-29] MEDS: ENOXAPARIN SODIUM 40 MG/0.4 ML SYG SUBCU SCH ×2 (08:55→22:03)
[2020-02-29] MEDS: BIFIDOBACTERIUM INFANTIS 4 MG CAP PO SCH ×2 (08:56→22:03)
[2020-02-29] MEDS: FISH OIL 1,200 MG CAP PO SCH ×2 (08:56→22:03)
[2020-02-29] MEDS: DEXAMETHASONE INJ 10 MG/ML VIAL IV SCH (08:56)
[2020-02-29] MEDS: LISINOPRIL 10 MG TAB PO SCH (08:56)
[2020-02-29] MEDS: ASPIRIN (CHEWABLE) 81 MG TAB PO SCH (08:56)
[2020-02-29] MEDS: VERAPAMIL ER 120 MG TAB PO SCH (08:57)
[2020-02-29] MEDS: ACETAMINOPHEN 325 MG TAB PO PRN (08:57)
[2020-02-29] MEDS: CALCIUM CARBONATE-VITAMIN D 500 MG TAB PO SCH ×2 (08:57→22:04)
[2020-02-29] MEDS: INSULIN GLARGINE 14 UNIT SUBCU SCH (09:32)
[2020-02-29] MEDS: BUDESONIDE/FORMOTEROL 160/4.5 60 PUFF/6 GM INH INH SCH ×2 (09:35→21:23)
[2020-02-29] MEDS: ALBUTEROL SULFATE 2.5 MG/3 ML VIAL NEB SCH ×4 (09:35→21:23)
[2020-02-29] MEDS: HYDROcodone 10MG/APAP 325MG 1 EA TAB PO PRN ×3 (13:14→22:04)
[2020-02-29] MEDS: cefTRIAXone SODIUM 1 GM in SODIUM CHL 0.9% 50ML MIN-BAG+ 50 ML IVPB SCH (16:54)
[2020-02-29] MEDS: METOPROLOL SUCCINATE XL 50 MG TAB PO SCH (16:56)
[2020-02-29] MEDS ORDERED: SODIUM CHLORIDE 0.9% (FLUSH) 10 ML SYG ONE (17:33)
[2020-02-29] MEDS: AZITHROMYCIN IV 500 MG in SODIUM CHLORIDE 0.9% 250ML 250 ML IVPB SCH (17:40)
[2020-02-29] MEDS: MELATONIN 3 MG TAB PO SCH (22:03)
[2020-03-01] MEDS: PANTOPRAZOLE SODIUM IV 40 MG VIAL IV SCH (05:40)
[2020-03-01] MEDS: metFORMIN HCL 500 MG TAB PO SCH ×2 (07:33→16:38)
[2020-03-01] MEDS: SITagliptin 50 MG TAB PO SCH ×2 (07:33→16:38)
[2020-03-01] MEDS: INSULIN LISPRO 100 UNITS/ML PEN SUBCU SCH ×4 (07:45→20:44)
[2020-03-01] MEDS: ALBUTEROL SULFATE 2.5 MG/3 ML VIAL NEB SCH ×4 (08:00→20:00)
[2020-03-01] MEDS: BUDESONIDE/FORMOTEROL 160/4.5 60 PUFF/6 GM INH INH SCH ×2 (08:00→20:00)
--- NOTE | 2020-03-01 08:06 | RAD ---
EXAMINATION: Chest x-ray one view. INDICATION: Covid. COMPARISON: February 28, 2020 TECHNIQUE: Frontal radiograph chest. FINDINGS: The cardiac silhouette is normal in size. Airspace opacities are present within the right midlung zone. There are also left lower lung zone airspace opacities associated with a small left pleural effusion. There is no pneumothorax. IMPRESSION: 1. Since the prior study, there has been development of airspace opacities in the right midlung zone. 2. Stable airspace opacities at the left lung base. Electronically signed by: Sahara Knott MD 03/01/2020 8:04 AM CDT
--- NOTE | 2020-03-01 08:52 | PN ---
SUPERVISING PHYSICIAN: Joao Wyatt M.D. DATE: 02/29/20 SUBJECTIVE: The patient is sitting up in bed. He still complains of some shortness of breath,although it has improved. He denies chest pain, nausea or vomiting. OBJECTIVE: VITAL SIGNS: Temperature 97, heart rate 75, blood pressure 131/69, respiratory rate 21 to 22, oxygen saturation saturation is 91% on 3 liters nasal cannula. He does desat to the upper 80s with any exertion. RESPIRATORY: Diminished breath sounds throughout, no wheezing or rales noted. CARDIAC: Regular rate and rhythm. NEUROLOGIC: He is awake, alert and oriented times three. LABORATORY: WBCs are 7.9 with hemoglobin 10.7, hematocrit 32. He has a left shift on his differential. Fibrinogen is 471. Electrolytes are basically within normal limits except his calcium is low at 8. All other labs and films have been reviewed via the EMR. ASSESSMENT: 1. COVID-19 pneumonitis. 2. Chronic obstructive pulmonary disease with exacerbation. 3. Hypertension. 4. Type 2 diabetes mellitus. 5. Hyperlipidemia. PLAN: We will continue present supportive care. Due to patient's desaturations with any exertion, he will most likely require another 48 to 72 hours of hospitalization. I will recheck his labs plus fibrinogen in the morning as well as a chest x-ray. We will continue to monitor him closely and follow as needed. #[id number] [facility]
[2020-03-01] MEDS: ASPIRIN (CHEWABLE) 81 MG TAB PO SCH (09:12)
[2020-03-01] MEDS: VERAPAMIL ER 120 MG TAB PO SCH (09:12)
[2020-03-01] MEDS: FISH OIL 1,200 MG CAP PO SCH ×2 (09:12→20:36)
[2020-03-01] MEDS: CALCIUM CARBONATE-VITAMIN D 500 MG TAB PO SCH ×2 (09:12→20:37)
[2020-03-01] MEDS: LISINOPRIL 10 MG TAB PO SCH (09:13)
[2020-03-01] MEDS: DEXAMETHASONE INJ 10 MG/ML VIAL IV SCH (09:13)
[2020-03-01] MEDS: INSULIN GLARGINE 14 UNIT SUBCU SCH (09:13)
[2020-03-01] MEDS: BIFIDOBACTERIUM INFANTIS 4 MG CAP PO SCH ×2 (09:13→20:36)
[2020-03-01] MEDS: ENOXAPARIN SODIUM 40 MG/0.4 ML SYG SUBCU SCH ×2 (09:13→20:36)
[2020-03-01] MEDS: NYSTATIN SUSPENSION 500,000/5 ML UD MT SCH ×4 (09:13→20:37)
[2020-03-01] MEDS: HYDROcodone 10MG/APAP 325MG 1 EA TAB PO PRN ×2 (09:14→17:59)
[2020-03-01] MEDS ORDERED: ONDANSETRON INJ 4 MG/2 ML VIAL ONE (12:42)
[2020-03-01] MEDS ORDERED: ONDANSETRON INJ 4 MG/2 ML VIAL IV PRN (12:54)
[2020-03-01] MEDS: ACETAMINOPHEN 325 MG TAB PO PRN ×2 (12:55→20:35)
[2020-03-01] MEDS: cefTRIAXone SODIUM 1 GM in SODIUM CHL 0.9% 50ML MIN-BAG+ 50 ML IVPB SCH (16:38)
[2020-03-01] MEDS: METOPROLOL SUCCINATE XL 50 MG TAB PO SCH (17:20)
[2020-03-01] MEDS: AZITHROMYCIN IV 500 MG in SODIUM CHLORIDE 0.9% 250ML 250 ML IVPB SCH (17:20)
[2020-03-01] MEDS: MELATONIN 3 MG TAB PO SCH (20:36)
[2020-03-02] MEDS: HYDROcodone 10MG/APAP 325MG 1 EA TAB PO PRN ×3 (01:02→21:40)
[2020-03-02] MEDS: PANTOPRAZOLE SODIUM IV 40 MG VIAL IV SCH (05:49)
[2020-03-02] MEDS: ACETAMINOPHEN 325 MG TAB PO PRN ×2 (05:49→16:21)
[2020-03-02] MEDS: BUDESONIDE/FORMOTEROL 160/4.5 60 PUFF/6 GM INH INH SCH ×2 (08:00→20:56)
[2020-03-02] MEDS: ALBUTEROL SULFATE 2.5 MG/3 ML VIAL NEB SCH ×4 (08:00→20:55)
--- NOTE | 2020-03-02 08:20 | PN ---
SUPERVISING PHYSICIAN: Joao Wyatt MD DATE: 03/01/20 SUBJECTIVE: The patient sitting on the bed, says he is still short of breath but has slowly improved. He has had a little nausea but no chest pain or abdominal pain. OBJECTIVE: VITAL SIGNS: Temperature 97.9, pulse 74, blood pressure 157/79 respirations are 18, oxygen saturation 94% on 3.5 liter nasal cannula. GENERAL: The patient does not appear to be in any distress. He is alert. CHEST: Lung sounds are active, fairly clear, just diminished towards the bases. HEART: Regular rate and rhythm. ABDOMEN: Soft, non-tender, positive bowel sounds. EXTREMITIES: Without cyanosis, clubbing, or edema. NEUROLOGIC: He is alert and oriented x3. LABORATORY: White count 7,900, differential does show a left shift with 2 bands. Hemoglobin stable at 10.9, hematocrit 32.5. Fibrinogen yesterday was 471, D-dimer had normalized and he continued to show a decrease on the at 131. MICROBIOLOGY: Blood cultures show no growth after 5 days C-difficile was negative. RADIOLOGY: Chest x-ray today per radiology interpretation since previous exam on February 27, there is development of airspace opacities in the right midlung zone with stable air opacities in the base of the left lung zone. ASSESSMENT: 1. Covid-19 pneumonitis. 2. Chronic obstructive pulmonary disease with exacerbation secondary to #1. 3. Hypertension. 4. Type 2 diabetes mellitus. 5. Hyperlipidemia. PLAN: Will continue with current plan of care at this point as he is showing a good response to treatment and showing to be improving slightly. Therefore, we will continue with azithromycin. He is on Symbicort, Rocephin, Decadron 6 mg, Lovenox 40 mg, B12. He remains on insulin sliding scale per protocol. He is on PPI for gastric protection. Will go ahead and give him some Zofran for nausea and monitor that closely. I anticipate probably another 24 to 48 hours of hospitalization if he continues to show improvement, hopefully the patient an be discharged on Tuesday. Until then, we will continue to monitor and treat as needed. #[id number] [facility]
[2020-03-02] MEDS ORDERED: SODIUM CHLORIDE 0.9% (FLUSH) 10 ML SYG ONE (08:43)
[2020-03-02] MEDS: INSULIN LISPRO 100 UNITS/ML PEN SUBCU SCH ×4 (09:06→21:59)
[2020-03-02] MEDS: VERAPAMIL ER 120 MG TAB PO SCH (09:07)
[2020-03-02] MEDS: BIFIDOBACTERIUM INFANTIS 4 MG CAP PO SCH ×2 (09:07→21:41)
[2020-03-02] MEDS: SITagliptin 50 MG TAB PO SCH ×2 (09:07→16:21)
[2020-03-02] MEDS: metFORMIN HCL 500 MG TAB PO SCH ×2 (09:07→16:21)
[2020-03-02] MEDS: ENOXAPARIN SODIUM 40 MG/0.4 ML SYG SUBCU SCH ×2 (09:07→21:38)
[2020-03-02] MEDS: INSULIN GLARGINE 14 UNIT SUBCU SCH (09:08)
[2020-03-02] MEDS: NYSTATIN SUSPENSION 500,000/5 ML UD MT SCH ×4 (09:08→21:38)
[2020-03-02] MEDS: DEXAMETHASONE INJ 10 MG/ML VIAL IV SCH (09:08)
[2020-03-02] MEDS: FISH OIL 1,200 MG CAP PO SCH ×2 (09:08→21:41)
[2020-03-02] MEDS: LISINOPRIL 10 MG TAB PO SCH (09:08)
[2020-03-02] MEDS: ASPIRIN (CHEWABLE) 81 MG TAB PO SCH (09:08)
[2020-03-02] MEDS: CALCIUM CARBONATE-VITAMIN D 500 MG TAB PO SCH ×2 (09:08→21:40)
[2020-03-02] MEDS: cefTRIAXone SODIUM 1 GM in SODIUM CHL 0.9% 50ML MIN-BAG+ 50 ML IVPB SCH (16:22)
[2020-03-02] MEDS: METOPROLOL SUCCINATE XL 50 MG TAB PO SCH (17:08)
[2020-03-02] MEDS: AZITHROMYCIN IV 500 MG in SODIUM CHLORIDE 0.9% 250ML 250 ML IVPB SCH (17:08)
[2020-03-02] MEDS: MELATONIN 3 MG TAB PO SCH (21:41)
--- NOTE | 2020-03-02 21:54 | PN ---
SUPERVISING PHYSICIAN: Joao Wyatt M.D. DATE: 03/02/20 SUBJECTIVE: The patient is able to tolerate a little bit less oxygen today. Of course he still does get quite winded when he gets up and exerts himself. He has no further complaints. OBJECTIVE: VITAL SIGNS: Temperature 97.9, pulse 72, blood pressure 145/73, respirations 20, satting 96% on 3 liters nasal cannula. GENERAL: The patient is resting comfortably in bed. Does not appear to be in any distress. CHEST: Lung sounds are active, fairly clear, just diminished towards the bases. HEART: Regular rate and rhythm. ABDOMEN: Soft, non-tender, positive bowel sounds. EXTREMITIES: Without cyanosis, clubbing, or edema. NEUROLOGIC: He is alert and oriented x3. LABORATORY: No additional laboratory studies other than his blood sugar ranging between 152 and 318. MICROBIOLOGY: Blood cultures remain negative at 5 days. RADIOLOGY: No additional radiographic studies today. ASSESSMENT: 1. Covid-19 pneumonitis. 2. Chronic obstructive pulmonary disease with exacerbation secondary to #1. 3. Hypertension. 4. Type 2 diabetes mellitus. 5. Hyperlipidemia. PLAN: If the patient continues to show good improvement overnight, will check his labs in the morning and hopefully be able to discharge him home. He is still on azithromycin, Rocephin, Decadron and Lovenox. Lovenox is at 40 mg every 12 hours. He is on sliding scale which is of course elevated due to his Decadron. He is on gastric protection without any complications. He is no longer having any nausea. He thinks the nausea was caused when he was utilizing some of his Nystatin for swish and swallow. Again I anticipate hopefully being able to discharge him home tomorrow. He has already got oxygen at home. Until then will continue to monitor and treat as needed. #[id number] [facility]
[2020-03-03] MEDS: PANTOPRAZOLE SODIUM IV 40 MG VIAL IV SCH (06:02)
[2020-03-03] MEDS: HYDROcodone 10MG/APAP 325MG 1 EA TAB PO PRN ×2 (06:24→12:12)
[2020-03-03 07:16] VITALS: TEMP 98
--- NOTE | 2020-03-03 07:21 | RAD ---
EXAM: XR Chest, 1 View CLINICAL HISTORY: The patient is 69 years old and is Male; COVID PNA TECHNIQUE: Single upright portable view of the chest. COMPARISON: March 01, 2020 7:48 AM. FINDINGS: Lungs: Right basilar infiltrate and/or subsegmental atelectasis. Lung aeration is otherwise not significantly changed. No pulmonary vascular congestion. Pleural space: Unremarkable. No pneumothorax. Heart: Unremarkable. No cardiomegaly. Mediastinum: Unremarkable. Bones/joints: The bones and joints are unchanged as visualized. Upper abdomen: No free air in the visualized upper abdomen. IMPRESSION: Right basilar infiltrate and/or subsegmental atelectasis. Lung aeration is otherwise not significantly changed. Electronically signed by: Tamy Nowak MD 03/03/2020 7:19 AM CDT
[2020-03-03] MEDS: metFORMIN HCL 500 MG TAB PO SCH (07:52)
[2020-03-03] MEDS: SITagliptin 50 MG TAB PO SCH (07:52)
[2020-03-03] MEDS: INSULIN LISPRO 100 UNITS/ML PEN SUBCU SCH ×2 (08:30→14:34)
[2020-03-03] MEDS: BUDESONIDE/FORMOTEROL 160/4.5 60 PUFF/6 GM INH INH SCH (09:30)
[2020-03-03] MEDS: ALBUTEROL SULFATE 2.5 MG/3 ML VIAL NEB SCH ×2 (09:30→14:39)
[2020-03-03] MEDS: VERAPAMIL ER 120 MG TAB PO SCH (09:38)
[2020-03-03] MEDS: ASPIRIN (CHEWABLE) 81 MG TAB PO SCH (09:39)
[2020-03-03] MEDS: LISINOPRIL 10 MG TAB PO SCH (09:39)
[2020-03-03] MEDS: BIFIDOBACTERIUM INFANTIS 4 MG CAP PO SCH (09:39)
[2020-03-03] MEDS: CALCIUM CARBONATE-VITAMIN D 500 MG TAB PO SCH (09:39)
[2020-03-03] MEDS: FISH OIL 1,200 MG CAP PO SCH (09:41)
[2020-03-03] MEDS: NYSTATIN SUSPENSION 500,000/5 ML UD MT SCH (09:41)
[2020-03-03] MEDS: DEXAMETHASONE INJ 10 MG/ML VIAL IV SCH (09:41)
[2020-03-03] MEDS: ENOXAPARIN SODIUM 40 MG/0.4 ML SYG SUBCU SCH (09:41)
[2020-03-03] MEDS: INSULIN GLARGINE 14 UNIT SUBCU SCH (09:41)
[2020-03-03 10:54] VITALS: BP 163/79; O2SAT 96
--- NOTE | 2020-03-12 16:45 | DS ---
SUPERVISING PHYSICIAN: Ben Nguyễn M.D. ADMISSION DIAGNOSIS: 1. COVID-19 pneumonitis. 2. Chronic obstructive pulmonary disease with exacerbation. 3. Hypertension. 4. Type 2 diabetes. 5. Hyperlipidemia. DISCHARGE DIAGNOSIS: 1. Covid-19 pneumonitis. 2. Chronic obstructive pulmonary disease with exacerbation secondary to #1. 3. Hypertension. 4. Type 2 diabetes mellitus. 5. Hyperlipidemia. REASON FOR HOSPITALIZATION: Mr. Urban is a 69 year-old gentleman who has a history of chronic obstructive pulmonary disease who presents complaining of shortness of breath and coughing that started on Tuesday. He does state that he also had some vomiting on February 15, felt sick for 2 or 3 days and it kinds of got better, and then on Tuesday began getting more shortness of breath and feeling poorly. He has had some fever. He is still feeling nauseated, having some mild abdominal pains. Denies any diarrhea. No chest pain but he has been wheezing. His cough has been fairly nonproductive. He has had no hemoptysis. LABORATORY STUDIES: White count on discharge was 8,400. It did show a left shift continued with 1% bands at discharge. Hemoglobin was stable at 11.7 and 36.0. Coagulation studies: D-dimer initially was 687, prior to discharge it had trended down to 131. Fibrinogen was showing to be stable at 471 on discharge which was down from admission of 497. PT and PTT were all within normal limits. Chemistries at discharge with normal electrolytes with creatinine 0.98. Blood sugar ranged between 181 and 239, ferritin was normal at 124. C reactive protein initially on admission was 10.5, prior to discharge was 2.0. Liver functions were all within normal limits. Troponins were all less than 0.02. MICROBIOLOGY: Blood cultures remained negative after 5 days. C-Difficile toxin A and B were negative. Respiratory panel did show positive for severe acute respiratory [id number]. All other, including Influenza A and B were not detected. RADIOLOGY: CT of the chest on admission showed bibasilar dependent lower lobe airspace consolidations, air bronchograms and bronchiectasis. Please see that report for details. Final chest x-ray on 03/03/20 per radiology interpretation showed right basilar infiltrate and/or subsegmental atelectasis. EKG showed normal sinus rhythm with no ST or T wave changes. HOSPITAL COURSE: Mr. Urban was admitted for treatment of COVID pneumonitis per protocol. He was started on Decadron, breathing treatments, azithromycin, Rocephin and anticoagulation initially with Lovenox which was increased to 40 mg every 12 hours. Clinically he did well. His vital signs were showing stable. On discharge, he was actually maintaining O2 saturations at 3 liters at 96%, blood pressure was 163/79, respirations 18. He was afebrile with temperature 98.0. He was showing clinical improvement well enough to continue with outpatient management, therefore he was discharged to continue with outpatient management and to be discharged home. PLAN: Mr. Urban was discharged to followup with Dr. Nguyễn in 1 to 2 weeks after discharge. He was to resume all of his medications prior to hospitalization and continue with treatment for the COVID-19 pneumonia with Eliquis and Dexamethasone. He had finished a course of antibiotics prior to discharge. He was continued on anticoagulation with Eliquis for 30 days. Activity to increase as tolerated. Again, diet was an ADA diet as tolerated and monitor blood sugars. Medications prescribed on discharge included: 1. Eliquis 5 mg twice daily, #60. No refills. 2. Align 4 mg twice daily, #30. No refills. 3. Decadron 4 mg daily, #6. No refills. Condition on discharge was stable and improving. DISPOSITION: The patient was discharged home. #[id number] [facility]
== END 2020-03-03 13:15 | disposition home or self-care (01) | DRG 177 ==
LOC: ER 14:56 → UNDOADMOB 19:24 → OBSVTOIN 19:24 → MS 19:24 → INTOOBSV 19:24 → OBSVTOIN 02-27 22:46 → MS 02-27 22:46
PROVIDERS: ADMIT Family Medicine; ATTEND Nurse Practitioner Family
DX: U07.1 COVID-19 (principal); J12.89 Other viral pneumonia; J44.1 Chronic obstructive pulmonary disease with (acute) exacerbation; R09.02 Hypoxemia; I10 Essential (primary) hypertension; E11.9 Type 2 diabetes mellitus without complications; E78.5 Hyperlipidemia, unspecified; M10.9 Gout, unspecified; M85.80 Other specified disorders of bone density and structure, unspecified site; K21.9 Gastro-esophageal reflux disease without esophagitis; G47.33 Obstructive sleep apnea (adult) (pediatric); Z86.73 Personal history of transient ischemic attack (TIA), and cerebral infarction without residual deficits; Z99.81 Dependence on supplemental oxygen; Z79.82 Long term (current) use of aspirin; Z79.891 Long term (current) use of opiate analgesic; Z79.899 Other long term (current) drug therapy; Z79.52 Long term (current) use of systemic steroids; Z79.4 Long term (current) use of insulin

== ENCOUNTER → 2020-07-24 | Outpatient (CLI) | payer MEDICARE, OTHER | LOC: GMAM 10:27 | PROVIDERS: ATTEND Family Medicine | DX: E53.8 Deficiency of other specified B group vitamins (principal); I10 Essential (primary) hypertension; E11.9 Type 2 diabetes mellitus without complications ==